=== PATIENT | female | born 1940 ===

== ENCOUNTER 2017-11-11 11:44 | Inpatient (IN) ==
[2017-11-11] MEDS: *HR* Morphine 2 MG/ML SYRINGE IVP PRN ×3 (12:44→21:14)
[2017-11-11] MEDS ORDERED: Naloxone 0.4 MG/ML INJ IVP PRN (12:51)
--- NOTE | 2017-11-11 13:05 | Internal Med History&Physical ---
Date of Encounter: 11/12/17 Time of Encounter: 13:03 Assessment and Plan (1) Hip fracture, left Current visit: Yes Status: Acute 77/female Has multiple comorbid conditions. Admitted with left hip fracture. Orthopedics on the board. Plan: Admit as inpatient. Nothing by mouth. Orthopedics consult. Pain control: Intravenous morphine 2 mg every 4 hours/when necessary. We will get more information regarding her home medication and then we will resume home medication accordingly. Patient's family at bedside. I have explained the above plan the patient's son who was in the room. Family verbalize understanding. Qualifiers: Encounter type: initial encounter Fracture type: closed Qualified Code(s) : S72.002A - Fracture of unspecified part of neck of left femur, initial encounter for closed fracture (2) Hypertension Current visit: Yes Status: Chronic We will resume home medication. Qualifiers: Hypertension type: essential hypertension Qualified Code(s): I10 - Essential (primary) hypertension (3) COPD (chronic obstructive pulmonary disease) Current visit: Yes Status: Chronic We will resume home medication Qualifiers: COPD type: unspecified COPD Qualified Code(s): J44.9 - Chronic obstructive pulmonary disease, unspecified (4) DVT prophylaxis Current visit: Yes Status: Acute Heparin Medical decision making: This patient has a moderate to severe risk of worsening in spite of being on appropriate medication to the underlying complex medical condition. Internal Medicine - H&P: HPI Chief complaint: hip pain Admitted From: Hospital to Hospital Transfer Plans for Post Hospital Care: Transfer Alf Facility History of present illness: 77/female Brief past medical history: COPD/hypertension/GERD/history of colon cancer and status post colectomy. History of present medical illness:Ms. MCDONALD is a 77 year old female who had a multiple medical comorbid conditions. Patient had a fall yesterday at home. Patient was transferred to [facility] for further evaluation. Noted that the CT scan of the hip was done at the [facility]. CT scan of the head was suggestive of a left femur fracture. Patient denies any short of breath, chest pain, nausea, vomiting, abdominal pain, dizziness or diarrhea. Reason for transfer: Patient was transferred to this hospital as [facility] does not have orthopedic coverage as of yesterday. Family history: Noncontributory Past Med Surg Social Fam HX - Past Medical History Medical history: arthritis, cancer, COPD, GERD Psychiatric history: no psych history - Past Surgical History Surgical History: colectomy - Social History Smoking Status: Former smoker Smokeless Tobacco Status: No Alcohol use: none Drug use: none Internal Medicine - H&P: Meds Acetaminophen [Tylenol] 650 mg PO DAILY@209911/11/17 [History] Albuterol Sulfate [Ventolin Hfa] 18 gm IH Q4H PRN 11/11/17 [History] Cholecalciferol (Vitamin D3) [Vitamin D] 1,000 unit PO DAILY 11/11/17 [History] DiphenhydraMINE [Benadryl] 25 mg PO DAILY@2099 PRN 11/11/17 [History] Gabapentin [Gralise] 300 mg PO DAILY@209911/11/17 [History] Levofloxacin [Levaquin] 500 mg PO DAILY 11/11/17 [History] Lisinopril-HCTZ 10-12.5 [Prinzide 10-12.5] 1 each PO DAILY 11/11/17 [History] Ranitidine HCl [Zantac] 150 mg PO BID 11/11/17 [History] Ropinirole HCl [Requip] 0.5 mg PO DAILY@209911/11/17 [History] Temazepam [Restoril] 15 mg PO HS PRN 11/11/17 [History] predniSONE [PredniSONE] 20 mg PO DAILY 11/11/17 [History] 3 Allergy/AdvReac Type Severity Reaction Status Date / Time Penicillins [PCN] Allergy Anaphylaxis Verified 11/11/17 12:04 shellfish derived Allergy Anaphylaxis Verified 11/11/17 12:04 All Systems PM: A 10-system review of systems was performed and is negative for pertinent findings except as documented above in the HPI. - Constitutional Constitutional: no chills, no fever(s), no night sweats Additional comments: Patient has a persistent left hip pain. - EENT Eyes: no change in vision, no discharge, no pain, no photophobia Ears: no ear discharge, no ear pain, no tinnitus Nose, mouth and throat: no dysphagia, no nasal discharge, no neck pain, no sore throat - Cardiovascular Cardiovascular ROS IM: no chest pain, no diaphoresis, no dyspnea, no lightheadedness, no palpitations, no syncope - Respiratory Respiratory: no cough, no dyspnea, no wheezing, no excessive phlegm production - Gastrointestinal Gastrointestinal: no abdominal pain, no diarrhea, no hematemesis, no hematochezia, no melena, no nausea, no vomiting - Genitourinary Genitourinary: no change in urinary stream, no dysuria, no flank pain, no hematuria - Musculoskeletal Musculoskeletal ROS IM: no numbness, no tingling - Integumentary Integumentary IM: no rash, no unusual bruising - Neurological Neurological ROS: no confusion, no convulsions, no focal weakness, no numbness, no tingling, no tremor(s) - Hematologic/Lymphatic Hematologic/Lymphatic: no easy bruising - Head Head exam: Present: atraumatic, normocephalic Additional comments: Left hip pain. - Eye Eye exam: Present: PERRL, conjuntiva pink, sclera anicteric Pupils: Present: PERRL - Neck Neck exam general surgery: Present: supple, trachea midline. Absent: lymphadenopathy - Respiratory Respiratory exam: Present: CTAB. Absent: accessory muscle use, rales, rhonchi, wheezes - Cardiovascular Cardiovascular exam: Present: RRR, +S1, +S2. Absent: diastolic murmur, gallop, rubs, systolic murmur - GI/Abdominal GI/Abdominal exam: Present: normal bowel sounds, soft, no peritoneal signs. Absent: distended, tenderness - Extremities Exam Extremities exam: Present: warm, radial pulses palpable and symmetrical. Absent : calf tenderness, cyanotic, pedal edema - Neurological Exam Neurological exam: Present: CN II-XII intact, oriented X3, no focal deficits. Absent: pronater drift, facial droop, speech deficit - Skin Skin exam: Present: dry, intact Internal Med - H&P Results - Labs CBC & Chem 7: 11/12/17 11:22 11/12/17 01:07
[2017-11-11 13:47] LABS: Basophils % 0.4 %; Eosinophils # 0.1 K/mcL (0.0-0.6); Eosinophils % 1.2 %; Hematocrit 32.8 % (35.3-44.9); Hemoglobin 10.5 g/dL (11.5-15.4); Immature Granulocytes % 0.5 % (0-4); Lymphocytes # 1.8 K/mcL (0.6-4.6); Mean Corpuscular Hemoglobin 29.3 pg (28.0-33.3); Mean Corpuscular Volume 91.6 fL (83.0-100.0); Mean Platelet Volume 9.2 fL (9.4-12.4); Monocytes # 0.7 K/mcL (0.0-1.3); Monocytes % 8.6 %; Neutrophils # 5.6 K/mcL (1.6-8.9); Platelet Count 228 K/mcL (140-400); Red Blood Count 3.58 M/mcL (3.82-4.97); Red Cell Distribution Width 14.1 % (11.5-14.5); Segmented Neutrophils % 67.3 %
[2017-11-11 14:02] LABS: Alanine Aminotransferase 9 Units/L (7-52); Albumin 3.3 g/dL (3.5-5.7); Albumin/Globulin Ratio 1.5 (1.1-2.2); Alkaline Phosphatase 40 Units/L (34-104); Aspartate Amino Transferase 10 Units/L (13-39); BUN/Creatinine Ratio 20 (6-26); Bilirubin,Total 0.7 mg/dL (0.3-1.0); Blood Urea Nitrogen 15 mg/dL (8-23); Calcium 8.9 mg/dL (8.6-10.3); Carbon Dioxide 28 mEq/L (23-29); Chloride 105 mEq/L (98-107); Globulin 2.2 g/dL (2.4-3.5); Glucose 94 mg/dL (70-105); Osmolality,Calculated 287 (280-300); Potassium 3.5 mEq/L (3.5-5.1); Sodium 138 mEq/L (136-145); Total Protein 5.5 g/dL (6.4-8.9); eGFR For African Americans > 60 (> 60); eGFR For Non-African Americans > 60 (> 60)
--- NOTE | 2017-11-11 15:46 | Orthopedic Consult Note ---
Date of Encounter: 11/11/17 Time of Encounter: 15:44 Assessment and Plan (1) Hip fracture, left Current Visit: Yes Status: Acute Nondisplaced reverse obliquity intertrochanteric fracture Plan: Patient was scheduled for surgery tomorrow morning for a left hip intramedullary nailing. The risks, benefits and alternatives discussed patient and family. Informed consent was obtained. Qualifiers: Encounter type: initial encounter Fracture type: closed Qualified Code(s) : S72.002A - Fracture of unspecified part of neck of left femur, initial encounter for closed fracture History of Present Illness Chief complaint: Left hip pain HPI: Ms. MCDONALD is a 77 year old female who lives at home and is a minimal ambulator with a walker. The patient home yesterday when she was pivoting, lost her balance and fell onto her left side. Patient denies loss of consciousness. No dizziness prior to fall. She reports no chest pain or shortness of breath. Patient was taken by [facility] where she was evaluated and a CT scan showed a nondisplaced reverse obliquity intertrochanteric left hip fracture. The patient was transferred here today for surgical management. Past Med Surg Social Fam HX - Past Medical History Medical history: arthritis, cancer, COPD, GERD Psychiatric history: no psych history - Past Surgical History Surgical History: colectomy - Social History Smoking Status: Former smoker Smokeless Tobacco Status: No Alcohol use: none Drug use: none Medications and Allergies Acetaminophen [Tylenol] 650 mg PO DAILY@209911/11/17 [History] Albuterol Sulfate [Ventolin Hfa] 18 gm IH Q4H PRN 11/11/17 [History] Cholecalciferol (Vitamin D3) [Vitamin D] 1,000 unit PO DAILY 11/11/17 [History] DiphenhydraMINE [Benadryl] 25 mg PO DAILY@2100 PRN 11/11/17 [History] Gabapentin [Gralise] 300 mg PO DAILY@209911/11/17 [History] Levofloxacin [Levaquin] 500 mg PO DAILY 11/11/17 [History] Lisinopril-HCTZ 10-12.5 [Prinzide 10-12.5] 1 each PO DAILY 11/11/17 [History] Ranitidine HCl [Zantac] 150 mg PO BID 11/11/17 [History] Ropinirole HCl [Requip] 0.5 mg PO DAILY@2100 11/11/17 [History] Temazepam [Restoril] 15 mg PO HS PRN 11/11/17 [History] predniSONE [PredniSONE] 20 mg PO DAILY 11/11/17 [History] 3 Allergy/AdvReac Type Severity Reaction Status Date / Time Penicillins [PCN] Allergy Anaphylaxis Verified 11/11/17 12:04 shellfish derived Allergy Anaphylaxis Verified 11/11/17 12:04 All Systems Reviewed: A 10-system review of systems was performed and is negative for pertinent findings except as documented above in the HPI. - Musculoskeletal Musculoskeletal: abnormal gait Physical Exam - Constitutional Vitals: Temp Pulse Resp BP Pulse Ox 98.0 F 79 16 107/68 96 11/11/17 13:14 11/11/17 13:14 11/11/17 13:14 11/11/17 13:14 11/11/17 13:14 General appearance IM: A&O X 3, pleasant, answers questions appropriately Exam: Head normocephalic and atraumatic Neck supple and nontender Right upper extremity: No tenderness along bones or joints, no bruising, moving well Left upper extremity: Soft tissues tenderness at the upper arm diffusely, no bony instability, joints move well and no tenderness at elbow, forearm, wrist, and hand, moving joints well Pelvis stable Right extremity no tenderness, moves knee and ankle well no tenderness along bones Left lower extremity: Patient has no groin tenderness but she is tender over the greater trochanter region, painful motion of hip, able to move the digit. Hip but no knee tenderness no tenderness to shaft femur. Moves ankle well with no pain no tenderness in ankle or foot or leg. Dorsalis pedis pulse 2+. Sensation grossly intact. Compartments soft and nontender. Results - Labs Result Diagrams: 11/11/17 13:31 11/11/17 13:31 Labs: Abnormal lab results RBC 3.58 M/mcL (3.82-4.97) L 11/11/17 13:31 Hgb 10.5 g/dL (11.5-15.4) L 11/11/17 13:31 Hct 32.8 % (35.3-44.9) L 11/11/17 13:31 MPV 9.2 fL (9.4-12.4) L 11/11/17 13:31 AST 10 Units/L (13-39) L 11/11/17 13:31 Serum Total Protein 5.5 g/dL (6.4-8.9) L 11/11/17 13:31 Albumin 3.3 g/dL (3.5-5.7) L 11/11/17 13:31 Globulin 2.2 g/dL (2.4-3.5) L 11/11/17 13:31 H & H 11/11/17 Range/Units 13:31 Hgb 10.5 L (11.5-15.4) g/dL Hct 32.8 L (35.3-44.9) % All other labs normal. - Diagnostic results Hip CT: image reviewed (Left hip reverse obliquity nondisplaced intertrochanteric fracture)
[2017-11-12 01:25] LABS: Basophils # 0.1 K/mcL (0.0-0.2); Basophils % 0.6 %; Eosinophils # 0.3 K/mcL (0.0-0.6); Eosinophils % 2.6 %; Hematocrit 33.5 % (35.3-44.9); Hemoglobin 10.6 g/dL (11.5-15.4); Immature Granulocytes % 0.5 % (0-4); Mean Corpuscular HGB Conc 31.6 g/dL (31.6-35.5); Mean Corpuscular Volume 91.8 fL (83.0-100.0); Mean Platelet Volume 9.3 fL (9.4-12.4); Monocytes # 0.7 K/mcL (0.0-1.3); Monocytes % 7.4 %; Neutrophils # 6.5 K/mcL (1.6-8.9); Platelet Count 229 K/mcL (140-400); Red Blood Count 3.65 M/mcL (3.82-4.97); Segmented Neutrophils % 67.9 %
[2017-11-12 01:32] LABS: INR 1.1; Prothrombin Time 11.9 Seconds (9.4-12.1)
[2017-11-12 01:35] LABS: Activated Partial Thrombo Time 28.5 Seconds (26.0-36.0)
[2017-11-12 01:47] LABS: Alanine Aminotransferase 10 Units/L (7-52); Albumin 3.4 g/dL (3.5-5.7); Albumin/Globulin Ratio 1.5 (1.1-2.2); Alkaline Phosphatase 47 Units/L (34-104); Aspartate Amino Transferase 11 Units/L (13-39); BUN/Creatinine Ratio 22 (6-26); Bilirubin,Total 0.9 mg/dL (0.3-1.0); Blood Urea Nitrogen 17 mg/dL (8-23); Carbon Dioxide 25 mEq/L (23-29); Chloride 104 mEq/L (98-107); Chol/HDL Ratio 4.6 (0-4.9); Cholesterol 236 mg/dL (< 200); Globulin 2.3 g/dL (2.4-3.5); Glucose 99 mg/dL (70-105); HDL Cholesterol 51 mg/dL (40-59); LDL Cholesterol,Calculated 148 mg/dL (0-99); Magnesium 1.9 mg/dL (1.6-2.6); Osmolality,Calculated 288 (280-300); Phosphorous 2.2 mg/dL (2.7-4.5); Potassium 3.8 mEq/L (3.5-5.1); Sodium 138 mEq/L (136-145); Total Protein 5.7 g/dL (6.4-8.9); Triglycerides 184 mg/dL (< 150); eGFR For African Americans > 60 (> 60); eGFR For Non-African Americans > 60 (> 60)
[2017-11-12] MEDS: *HR* Morphine 2 MG/ML SYRINGE IVP PRN (03:36)
[2017-11-12] MEDS ORDERED: Acetaminophen IV 1,000 MG/100 ML INFUS..BTL IVPB ONE ×2 (07:31→20:30)
[2017-11-12] MEDS ORDERED: Famotidine 20 MG/2 ML VIAL IVP ONE (07:31)
[2017-11-12] MEDS ORDERED: Albuterol 2.5 MG/3 ML NEBULIZER IH ONE (07:32)
[2017-11-12] MEDS ORDERED: Albuterol 2.5 MG/3 ML NEBULIZER ONE (07:33)
--- NOTE | 2017-11-12 07:37 | Anesthesia Evaluation PreOp ---
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 Other Medical History: Denies Any Significant HX Anesthesia History: No Prior Anesthetic Complications : No Alcohol Use: none Drug use: none Medications and Allergies Acetaminophen [Tylenol] 650 mg PO DAILY@209911/11/17 [History] Albuterol Sulfate [Ventolin Hfa] 18 gm IH Q4H PRN 11/11/17 [History] Cholecalciferol (Vitamin D3) [Vitamin D] 1,000 unit PO DAILY 11/11/17 [History] DiphenhydraMINE [Benadryl] 25 mg PO DAILY@2099 PRN 11/11/17 [History] Gabapentin [Gralise] 300 mg PO DAILY@209911/11/17 [History] Levofloxacin [Levaquin] 500 mg PO DAILY 11/11/17 [History] Lisinopril-HCTZ 10-12.5 [Prinzide 10-12.5] 1 each PO DAILY 11/11/17 [History] Ranitidine HCl [Zantac] 150 mg PO BID 11/11/17 [History] Ropinirole HCl [Requip] 0.5 mg PO DAILY@209911/11/17 [History] Temazepam [Restoril] 15 mg PO HS PRN 11/11/17 [History] predniSONE [PredniSONE] 20 mg PO DAILY 11/11/17 [History] 3 Allergy/AdvReac Type Severity Reaction Status Date / Time Penicillins [PCN] Allergy Anaphylaxis Verified 11/11/17 12:04 shellfish derived Allergy Anaphylaxis Verified 11/11/17 12:04 - Meds/Allergy Pre-op Review Medications Reviewed: Yes Allergies Reviewed: Yes Beta Blockers on Current Med List: No Anesthesia Results - Labs 11/12/17 01:07 11/12/17 01:07 - Imaging EKG: pending Anesthesia Exam O2 Sat Height 1.57 m Weight 62.66 kg Weight 62.596 kg O2 Sat by Pulse Oximetry 97 O2 Sat by Pulse Oximetry 97 O2 Sat by Pulse Oximetry 97 O2 Sat by Pulse Oximetry 97 O2 Sat by Pulse Oximetry 96 Vital Signs Temp Pulse Resp BP Pulse Ox 98.0 F 79 16 107/68 96 11/11/17 13:14 11/11/17 13:14 11/11/17 13:14 11/11/17 13:14 11/11/17 13:14 Height: 5'2 Weight: 138 lbs NPO (# of Hours): MN Pain Scale: 1 - HEENT Pupil (Motor): Pupils equal, EOMI Mallampati: III Teeth: Edentulous Oral Opening: Less than or equal to 3 - 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
[2017-11-12] MEDS ORDERED: Lidocaine -MPF 2% 2 ML VIAL ONE (07:41)
[2017-11-12] MEDS ORDERED: Ondansetron 4 MG/2 ML VIAL ONE (07:41)
[2017-11-12] MEDS ORDERED: *HR* Succinylcholine 200 MG/10 ML VIAL IVP ONE (07:41)
[2017-11-12] MEDS ORDERED: *HR* FentaNYL (PF) 100 MCG/2 ML VIAL ONE ×2 (07:41→08:36)
[2017-11-12] MEDS ORDERED: Lidocaine -MPF 4% 5 ML AMPUL ONE (07:41)
[2017-11-12] MEDS ORDERED: *HR* Propofol 200 MG/20 ML VIAL IVP ONE (07:41)
[2017-11-12] MEDS ORDERED: *HR* Phenylephrine 10 MG/ML VIAL ONE (08:37)
[2017-11-12] MEDS ORDERED: Clindamycin 900 MG/50 ML 900 MG/50 ML IV.SOLN IVPB ONE (08:49)
[2017-11-12] MEDS ORDERED: *HR* Morphine 10 MG/ML VIAL ONE (09:41)
[2017-11-12] MEDS ORDERED: Ringers Solution, Lactated 1,000 ML ONE (10:18)
--- NOTE | 2017-11-12 10:45 | Anesthesia Evaluation Post Op ---
Date of Encounter: 11/12/17 Time of Encounter: 10:45 - Vital Signs Vital Signs: Vital Signs/O2 Sat/Glucose, Most Current Temp Pulse Resp BP Pulse Ox 11/12/17 10:42 98.7 F 94 14 78/42 92 11/12/17 10:32 94 16 77/47 92 11/12/17 10:22 93 14 83/39 96 11/12/17 10:12 99.2 F 93 14 94/52 95 - Lungs Lungs: Clear Ascult./Percussion - Airway Airway: Non-obstructed - Cardiovascular Regular Rate - Mental Status Mental Status: Alert & Oriented, Answers Appropriately - Pain Pain Scale: 1 - Nausea Vomiting Nausea Vomiting: Not Present - Hydration Hydration: NPO - Discharge PostOp Status: Transfer Patient to floor
--- NOTE | 2017-11-12 10:54 | Internal Med Progress Note ---
Date of Encounter: 11/12/17 Time of Encounter: 10:54 - Assessment and plan (1) Hypotension Current Visit: Yes Status: Acute Assessment and plan: Possibly due to anesthesia Cannot rule out hemorrhage Op note states EBL is ~250cc We have given 2L IVF STAT bolus Obtain another IV access TYpe and screen Repeat HB is 9.9 (admitted with 10) GIve 2 units RBCs Hall catheter to monitor I/Os Patient denies hx of cardiac disease MOnitor resp status Transfer out of [facility] to High risk diagnosis with risk of decompensation to shock and need for pressors Qualifiers: Hypotension type: unspecified hypotension type Qualified Code(s): I95.9 - Hypotension, unspecified (2) Hip fracture, left Current Visit: Yes Status: Acute Assessment and plan: s/p fixation Management per surgery Qualifiers: Encounter type: initial encounter Fracture type: closed Qualified Code(s) : S72.002A - Fracture of unspecified part of neck of left femur, initial encounter for closed fracture (3) DVT prophylaxis Current Visit: Yes Status: Acute Assessment and plan: lovenox 30mg q12h, continue same (4) Hypertension Current Visit: Yes Status: Chronic Assessment and plan: Currently hypotensive, hold all meds Qualifiers: Hypertension type: essential hypertension Qualified Code(s): I10 - Essential (primary) hypertension (5) COPD (chronic obstructive pulmonary disease) Current Visit: Yes Status: Chronic Assessment and plan: NO exacerbation at this time Qualifiers: COPD type: unspecified COPD Qualified Code(s): J44.9 - Chronic obstructive pulmonary disease, unspecified (6) Hypoxia Current Visit: Yes Status: Acute Assessment and plan: Acute, post-op Obtain STAT CXR Chest is CTAB at this time, if hypoxia does not improve when patient's hypotension resolved, if CXR is clear, will obtain CTA to r/o PE - Subjective Interval history: 77 F with PMH of HTN, who sustained a Left femoral fracture after a mechanical fall She was seen immediate postop Attention drawn to patient by RN said to have been hypotensive since post op At time of eval, family is at the bedside and state patient usually gets hypotensive when she receives pain meds and or anesthesia The patient is awake, alert, oriented to self, place and person, and situation, she denies any discomfort, no chest pain, no SOB - Constitutional Vitals: Temp Pulse Resp BP Pulse Ox 98.7 F 93 14 69/48 93 11/12/17 10:42 11/12/17 10:50 11/12/17 10:50 11/12/17 10:50 11/12/17 10:50 General appearance: Present: A&O X 3, pleasant, no acute distress - Head Head exam: Present: atraumatic, normocephalic - Eye Eye exam: Present: PERRL, conjuntiva pink, sclera anicteric Pupils: Present: PERRL - Neck Neck exam general surgery: Present: supple, trachea midline. Absent: lymphadenopathy - Respiratory Respiratory exam: Present: CTAB. Absent: accessory muscle use, rales, rhonchi, wheezes - Cardiovascular Cardiovascular exam: Present: RRR, +S1, +S2. Absent: diastolic murmur, gallop, rubs, systolic murmur - GI/Abdominal GI/Abdominal exam: Present: normal bowel sounds, soft, no peritoneal signs. Absent: distended, tenderness - Extremities Exam Extremities exam: Present: warm, radial pulses palpable and symmetrical. Absent : calf tenderness, cyanotic, pedal edema Additional comments: Left extremity with dressings that are clean and dry. NO hematoma collection noted, distal extremity is well perfused - Neurological Exam Neurological exam: Present: alert, CN II-XII intact, oriented X3, no focal deficits. Absent: pronater drift, facial droop, speech deficit - Skin Skin exam: Present: dry, intact Internal Medicine: Result - Labs CBC & Chem 7: 11/12/17 11:22 11/12/17 01:07 Labs: Short CBC 11/11/17 11/12/17 Range/Units 13:31 01:07 WBC 8.4 9.6 (4.3-11.1) K/mcL Hgb 10.5 L 10.6 L (11.5-15.4) g/dL Hct 32.8 L 33.5 L (35.3-44.9) % Plt Count 228 229 (140-400) K/mcL Neutrophils # 5.6 6.5 (1.6-8.9) K/mcL BMP 11/11/17 11/12/17 13:31 01:07 Sodium 138 138 Potassium 3.5 3.8 Chloride 105 104 Carbon Dioxide 28 25 BUN 15 17 Creatinine 0.75 0.77 Glucose 94 99 Calcium 8.9 9.0 Cardiac Enzymes 11/11/17 11/11/17 11/12/17 Range/Units 13:31 18:42 01:07 Troponin I < 0.03 < 0.03 < 0.03 (< 0.04) ng/mL Liver Function 11/11/17 11/12/17 Range/Units 13:31 01:07 Total Bilirubin 0.7 0.9 (0.3-1.0) mg/dL AST 10 L 11 L (13-39) Units/L ALT 9 10 (7-52) Units/L Alkaline Phosphatase 40 47 (34-104) Units/L Albumin 3.3 L 3.4 L (3.5-5.7) g/dL - ABG Interpretation ABG results: PT/INR, D-dimer PT 11.9 Seconds (9.4-12.1) 11/12/17 01:07 - Impressions Impressions Hip X-Ray 11/11/17 15:04 IMPRESSION: Stable nondisplaced fracture of the proximal left femur. D/ / Chandler Flowers MD / Chandler Flowers MD Interpreting Provider: Chandler Flowers MD Femur X-Ray 11/11/17 17:02 IMPRESSION: Stable appearance of mildly displaced proximal femur fracture. No additional fractures seen. D/ / Scott Godoy MD / Scott Godoy MD Interpreting Provider: Scott Godoy MD Fluoroscopy 11/12/17 00:00 IMPRESSION: Intraprocedural fluoroscopic spot images as above. See separate procedure report for more information. D/ / Eric Cochran MD / Eric Cochran MD Interpreting Provider: Eric Cochran MD Hip X-Ray 11/12/17 00:00
[2017-11-12] MEDS ORDERED: 0.9 % Sodium Chloride 1,000 ML IVC SCH (11:00)
--- NOTE | 2017-11-12 11:18 | Operative Note ---
Date of procedure: 11/12/17 Pre-op diagnosis: Left hip reversed obliquity intertrochanteric fracture Post-op diagnosis: same Procedure: Left hip intramedullary nailing Implants: Analia gamma plus long nail Anesthesia: OTTONIEL Surgeon: Hakan Mcduffie Was there an grants assistant present: No Estimated blood loss (cc): 150 Specimen: 0 Condition: stable Disposition: PACU Procedure in Detail: The patient received IV antibiotics in the holding area. She was brought to the operating room, sign in was performed. The patient underwent general anesthesia on the hospital bed. She was then transferred to the fracture table in supine position. The patient was positioned with the support groin post, the affected left lower extremity in the traction grace and the contralateral lower extremity in a well-padded limb grace with a hip flexed and abducted out of the way. Fluoroscopy was then brought in, the fractures visualized, and the fracture reduced. It was seen that this was actually a subtrochanteric fracture. A long nail will be used. We checked on AP and true lateral view of the hip. The greater trochanter was grossly displaced, but appeared to be reducible with direct pressure over the lateral side. Once satisfactory the left hip, from the pelvis down to the knee, was prepped and draped in usual sterile fashion. A timeout was performed. The level of the greater trochanter was palpated, a 4-5 cm oblique incision was made just proximally, , followed by Bovie dissection. The hip abductor was sharply split in line with its fibers with a curved Villeda scissors. The tip of the greater trochanter was palpable. A curved awl was then positioned on the tip. Its position was checked on fluoroscopy, slightly advanced, and we checked the lateral view. Once appropriately positioned, the aggressive awl was then used to open the proximal femur down to level of the lesser trochanter. A guidewire was inserted down the awl, across the fracture site, and driven down to the distal femur. Then measured the length of the guidewire. A 320 mm long nail was chosen I started reaming with a 9 mm reamer and stopped at total 12.5 mm with good chatter. The proximal femur was reamed to 15 mm. A 320 mm long gamma nail with 125 degree neck angle, 11 mm diameter, was assembled, and appropriately inserted into the proximal femur. The appropriate level was checked under fluoroscopy. The trochars were placed in the jig at 125 degree neck angle was then positioned against the skin, and the radiolucent guide was used to assist in positioning. Once satisfactory a 2.5 cm incision was made, the fascia was bluntly split along with the muscle fibers of the vastus lateralis. The triple trocar was advanced up against the lateral cortex. The guidepin was then driven up into the femoral head, checking AP and lateral views. A 95 mm length lag screw was chosen. Overdrilled the guidewire, and the lag screw was inserted over the guidewire. Once close to the edge of the femoral head, the T- handled was held parallel to the nail. The setscrew was then fully tightened, locking the lag screw in static position. The distal targeting was attached to the jig. Fluoroscopy was appropriately set up and the targeting was adjusted. The triple trochars for the distal static locking screw were placed in the jig, a 1.5 cm longitudinal incision was made. The trochars were advanced to the cortex, and drilled across. The depth was measured and a 40 mm by 5 mm bicortical screw was placed. All trochars and jig were removed. Final fluoroscopy shots were taken and saved showing good AP and lateral views of the hip and also distally at the tip of the nail. We obtained a good true lateral of the knee making sure the distal nail was not touching the anterior cortex, in the metaphyseal region. The wounds were irrigated with normal saline. Fascia over the abductors was closed with 1 Vicryl [id number] stitches, including the deep subcutaneous fat layer. Subcutaneous tissues were closed with 2-0 Vicryl, and the skin incisions were closed with Zipline system. Sterile dressings were applied. The patient was transferred to hospital bed where she was extubated and taken to recovery room in stable condition.
[2017-11-12] MEDS ORDERED: Naloxone 0.4 MG/ML INJ IVP PRN (11:24)
[2017-11-12] MEDS ORDERED: Sennosides 8.6 MG TABLET PO PRN (11:24)
[2017-11-12] MEDS ORDERED: *HR* Morphine 2 MG/ML SYRINGE IVP PRN (11:24)
[2017-11-12] MEDS ORDERED: *HR* OxyCODONE Immed Rel 5 MG TABLET PO PRN (11:24)
[2017-11-12] MEDS ORDERED: *HR* HYDROcodone/Acet 5/325 mg TABLET PO PRN (11:24)
[2017-11-12] MEDS ORDERED: Temazepam 15 MG CAPSULE PO PRN (11:24)
[2017-11-12] MEDS ORDERED: D5% in 0.45% NACL 1,000 ML IVC SCH (11:24)
[2017-11-12 11:34] LABS: Basophils # 0.1 K/mcL (0.0-0.2); Basophils % 0.6 %; Eosinophils # 0.2 K/mcL (0.0-0.6); Eosinophils % 1.6 %; Hematocrit 32.1 % (35.3-44.9); Hemoglobin 9.9 g/dL (11.5-15.4); Immature Granulocytes % 0.6 % (0-4); Lymphocytes # 2.2 K/mcL (0.6-4.6); Lymphocytes % 20.4 %; Mean Corpuscular HGB Conc 30.8 g/dL (31.6-35.5); Mean Corpuscular Hemoglobin 29.1 pg (28.0-33.3); Mean Corpuscular Volume 94.4 fL (83.0-100.0); Mean Platelet Volume 9.5 fL (9.4-12.4); Monocytes # 0.9 K/mcL (0.0-1.3); Monocytes % 7.9 %; Neutrophils # 7.5 K/mcL (1.6-8.9); Platelet Count 219 K/mcL (140-400); Red Cell Distribution Width 13.8 % (11.5-14.5); Segmented Neutrophils % 68.9 %
[2017-11-12] MEDS: Ringers Solution, Lactated 1,000 ML IVC SCH ×2 (14:19→23:16)
[2017-11-12] MEDS ORDERED: 0.9 % Sodium Chloride 250 ML ONE (14:49)
[2017-11-12] MEDS: Famotidine 20 MG TABLET PO SCH ×2 (17:16→20:20)
[2017-11-12] MEDS: predniSONE 20 MG TABLET PO SCH (17:16)
[2017-11-12] MEDS: *HR* Enoxaparin 30 MG/0.3 ML SYRINGE SQ SCH (17:21)
[2017-11-12] MEDS: Clindamycin 900 MG/50 ML 900 MG/50 ML IV.SOLN IVPB SCH ×2 (17:21→23:18)
[2017-11-12] MEDS ORDERED: rOPINIRole 0.25 MG TABLET PO SCH (21:00)
[2017-11-12 23:12] LABS: Basophils # 0.1 K/mcL (0.0-0.2); Basophils % 0.5 %; Eosinophils # 0.2 K/mcL (0.0-0.6); Eosinophils % 2.1 %; Hematocrit 35.4 % (35.3-44.9); Hemoglobin 11.6 g/dL (11.5-15.4); Immature Granulocytes % 0.5 % (0-4); Lymphocytes # 1.3 K/mcL (0.6-4.6); Mean Corpuscular HGB Conc 32.8 g/dL (31.6-35.5); Mean Corpuscular Hemoglobin 29.4 pg (28.0-33.3); Mean Corpuscular Volume 89.8 fL (83.0-100.0); Mean Platelet Volume 9.8 fL (9.4-12.4); Monocytes # 0.9 K/mcL (0.0-1.3); Monocytes % 8.6 %; Neutrophils # 7.6 K/mcL (1.6-8.9); Platelet Count 171 K/mcL (140-400); Red Blood Count 3.94 M/mcL (3.82-4.97); Red Cell Distribution Width 14.1 % (11.5-14.5); Segmented Neutrophils % 75.3 %
[2017-11-13] MEDS: Acetaminophen 325 MG TABLET PO PRN ×2 (00:08→08:59)
[2017-11-13] MEDS ORDERED: 0.9 % Sodium Chloride 1,000 ML IVC ONE ×2 (01:28→12:17)
[2017-11-13] MEDS ORDERED: 0.9 % Sodium Chloride 1,000 ML ONE (01:29)
[2017-11-13] MEDS ORDERED: 0.9 % Sodium Chloride 1,000 ML IVC SCH (02:30)
[2017-11-13] MEDS: Ondansetron 4 MG/2 ML VIAL IVP PRN ×2 (03:04→14:07)
[2017-11-13] MEDS ORDERED: *HR* HYDROmorphone (PF) 1 MG/ML SYRINGE IVP ONE (04:09)
[2017-11-13] MEDS ORDERED: *HR* Promethazine 25 MG/ML VIAL IM PRN (04:09)
[2017-11-13] MEDS ORDERED: *HR* Promethazine 25 MG/ML VIAL IV PRN ×2 (04:30→16:30)
[2017-11-13 04:44] LABS: Hematocrit 34.6 % (35.3-44.9); Hemoglobin 11.1 g/dL (11.5-15.4); Mean Corpuscular HGB Conc 32.1 g/dL (31.6-35.5); Mean Corpuscular Volume 90.3 fL (83.0-100.0); Mean Platelet Volume 10.2 fL (9.4-12.4); Platelet Count 161 K/mcL (140-400); Red Blood Count 3.83 M/mcL (3.82-4.97); Segmented Neutrophils % 69.9 %
[2017-11-13 04:45] LABS: Basophils # 0.1 K/mcL (0.0-0.2); Basophils % 0.6 %; Eosinophils # 0.2 K/mcL (0.0-0.6); Eosinophils % 2.6 %; Immature Granulocytes % 0.7 % (0-4); Lymphocytes # 1.5 K/mcL (0.6-4.6); Lymphocytes % 17.7 %; Monocytes # 0.7 K/mcL (0.0-1.3); Monocytes % 8.5 %; Neutrophils # 6.1 K/mcL (1.6-8.9); Nucleated Red Blood Cells 0.2 /100 WBC (0)
[2017-11-13 05:02] LABS: BUN/Creatinine Ratio 22 (6-26); Blood Urea Nitrogen 17 mg/dL (8-23); Calcium 7.9 mg/dL (8.6-10.3); Carbon Dioxide 23 mEq/L (23-29); Chloride 104 mEq/L (98-107); Glucose 139 mg/dL (70-105); Osmolality,Calculated 286 (280-300); Potassium 3.9 mEq/L (3.5-5.1); Sodium 136 mEq/L (136-145); eGFR For African Americans > 60 (> 60); eGFR For Non-African Americans > 60 (> 60)
[2017-11-13] MEDS: *HR* Enoxaparin 30 MG/0.3 ML SYRINGE SQ SCH (05:27)
[2017-11-13] MEDS: Famotidine 20 MG TABLET PO SCH ×2 (08:59→20:00)
[2017-11-13] MEDS: predniSONE 20 MG TABLET PO SCH (08:59)
--- NOTE | 2017-11-13 10:06 | Internal Med Progress Note ---
<Oriana Renae - Last Filed: 11/13/17 16:29> Date of Encounter: 11/13/17 Time of Encounter: 10:04 - Assessment and plan (1) Acute pulmonary embolism Current Visit: Yes Status: Acute Assessment and plan: CTA 11/13/2017 showed acute bilateral pulmonary emboli in the segmental pulmonary arteries with evidence of at least mild right heart strain. Patient transferred to the ICU into the care of the critical care team therapeutic IV lovenox started STAT echo, troponin, BNP ordered Qualifiers: Qualified Code(s): I26.99 - Other pulmonary embolism without acute cor pulmonale (2) Hip fracture, left Current Visit: Yes Status: Acute Assessment and plan: s/p fixation Management per surgery Qualifiers: Encounter type: initial encounter Fracture type: closed Qualified Code(s) : S72.002A - Fracture of unspecified part of neck of left femur, initial encounter for closed fracture (3) Hypotension Current Visit: Yes Status: Acute Assessment and plan: Most likely due to PE found on CTA 11/13/2017 Hgb 11.1 2 units RBCs given typed and screened Hall catheter to monitor I/Os Qualifiers: Hypotension type: unspecified hypotension type Qualified Code(s): I95.9 - Hypotension, unspecified (4) Hypoxia Current Visit: Yes Status: Acute Assessment and plan: Acute, post-op STAT CXR showed nonspecific opacity in lateral lower left chest which could be consolidation or scar or docal nodule 96% saturation on 4L (5) COPD (chronic obstructive pulmonary disease) Current Visit: Yes Status: Chronic Assessment and plan: NO exacerbation at this time. continue albuerol Qualifiers: COPD type: unspecified COPD Qualified Code(s): J44.9 - Chronic obstructive pulmonary disease, unspecified (6) Hypertension Current Visit: Yes Status: Chronic Assessment and plan: Currently hypotensive, hold all meds Qualifiers: Hypertension type: essential hypertension Qualified Code(s): I10 - Essential (primary) hypertension (7) DVT prophylaxis Current Visit: Yes Status: Acute Assessment and plan: on lovenox for PE - Subjective Interval history: She has no complaints at this time. She reports her hip is chlorine cell tender. Denied shortness of breathe and chest pain, fever, chills. - Constitutional Vitals: Temp Pulse Resp BP Pulse Ox 97.7 F 90 18 96/55 95 11/13/17 08:10 11/13/17 08:10 11/13/17 08:10 11/13/17 08:10 11/13/17 08:10 General appearance: Present: A&O X 3, pleasant, no acute distress - Head Head exam: Present: atraumatic, normocephalic - Eye Eye exam: Absent: scleral icterus - Respiratory Respiratory exam: Present: CTAB. Absent: rales, rhonchi, wheezes - Cardiovascular Cardiovascular exam: Present: RRR - GI/Abdominal GI/Abdominal exam: Present: hypoactive bowel sounds, soft. Absent: guarding, tenderness - Extremities Exam Extremities exam: Absent: calf tenderness - Expanded Lower Extremities Exam Hip exam: Present: tenderness - Neurological Exam Neurological exam: Present: alert, oriented X3 - Psychiatric Psychiatric exam: Present: normal affect, normal mood - Skin Skin exam: Present: dry, intact Internal Medicine: Result - Labs CBC & Chem 7: 11/13/17 04:23 11/13/17 04:23 Labs: Short CBC 11/12/17 11/12/17 11/13/17 Range/Units 11:22 22:43 04:23 WBC 10.8 10.0 8.7 (4.3-11.1) K/mcL Hgb 9.9 L 11.6 D 11.1 L (11.5-15.4) g/dL Hct 32.1 L 35.4 34.6 L (35.3-44.9) % Plt Count 219 171 161 (140-400) K/mcL Neutrophils # 7.5 7.6 6.1 (1.6-8.9) K/mcL BMP 11/13/17 04:23 Sodium 136 Potassium 3.9 Chloride 104 Carbon Dioxide 23 BUN 17 Creatinine 0.77 Glucose 139 H Calcium 7.9 L - ABG Interpretation ABG results: PT/INR, D-dimer PT 11.9 Seconds (9.4-12.1) 11/12/17 01:07 - Impressions Impressions Fluoroscopy 11/12/17 00:00 IMPRESSION: Intraprocedural fluoroscopic spot images as above. See separate procedure report for more information. D/ / Eric Cochran MD / Eric Cochran MD Interpreting Provider: Eric Cochran MD Hip X-Ray 11/12/17 00:00 IMPRESSION: Intraprocedural fluoroscopic spot images as above. See separate procedure report for more information. D/ / Eric Cochran MD / Eric Cochran MD Interpreting Provider: Eric Cochran MD Chest X-Ray 11/12/17 15:07 IMPRESSION: 1. Nonspecific opacity lateral lower left chest may reflect consolidation, scar or focal nodule. Correlation with contrast-enhanced CT chest should be considered if the patient does not present with typical presentation of community acquired pneumonia. If the patient has typical findings of pneumonia clinically, then follow-up chest radiograph series in 6-8 weeks to ensure clearing will suffice. 2. Emphysema 3. Calcific atherosclerotic disease aorta. D/ / Lonnie Taylor / Lonnie Taylor Interpreting Provider: Lonnie Taylor - VTE Documentation of Mechanical Device: Intermittent pneumatic compression device Consult Discharge Plan - Plan Referrals: Ree Fan MD [Primary Care Provider] - ([facility] no PCP appointment needed) <Oz Xavier T - Last Filed: 11/13/17 16:47> Date of Encounter: 11/13/17 - Assessment and plan (1) Hypotension Current Visit: Yes Status: Acute Qualifiers: Qualified Code(s): I95.9 - Hypotension, unspecified (2) Hip fracture, left Current Visit: Yes Status: Acute Qualifiers: Qualified Code(s): S72.002A - Fracture of unspecified part of neck of left femur, initial encounter for closed fracture (3) DVT prophylaxis Current Visit: Yes Status: Acute (4) Hypertension Current Visit: Yes Status: Chronic Qualifiers: Qualified Code(s): I10 - Essential (primary) hypertension (5) COPD (chronic obstructive pulmonary disease) Current Visit: Yes Status: Chronic Qualifiers: Qualified Code(s): J44.9 - Chronic obstructive pulmonary disease, unspecified (6) Hypoxia Current Visit: Yes Status: Acute - Constitutional Vitals: Temp Pulse Resp BP Pulse Ox 97.5 F L 91 18 91/49 96 11/13/17 11:15 11/13/17 11:15 11/13/17 11:35 11/13/17 11:35 11/13/17 11:35 Internal Medicine: Result - Labs CBC & Chem 7: 11/13/17 04:23 11/13/17 04:23 Labs: Short CBC 11/12/17 11/13/17 Range/Units 22:43 04:23 WBC 10.0 8.7 (4.3-11.1) K/mcL Hgb 11.6 D 11.1 L (11.5-15.4) g/dL Hct 35.4 34.6 L (35.3-44.9) % Plt Count 171 161 (140-400) K/mcL Neutrophils # 7.6 6.1 (1.6-8.9) K/mcL BMP 11/13/17 04:23 Sodium 136 Potassium 3.9 Chloride 104 Carbon Dioxide 23 BUN 17 Creatinine 0.77 Glucose 139 H Calcium 7.9 L Cardiac Enzymes 11/13/17 Range/Units 15:04 Troponin I 0.29 H* (< 0.04) ng/mL - ABG Interpretation ABG results: PT/INR, D-dimer PT 11.9 Seconds (9.4-12.1) 11/12/17 01:07 - Impressions Impressions Chest CTA 11/13/17 12:12 IMPRESSION: 1. Acute bilateral pulmonary emboli in the segmental pulmonary arteries with evidence of at least mild right heart strain. 2. Patchy airspace opacities in the right lower lobe which could be related to infection or developing pulmonary infarct. 3. Coronary atherosclerosis. D/ / 11/13/2017 13:34:22 Scott Godoy MD / [facility] Interpreting Provider: Scott Godoy MD Echocardiogram 11/13/17 14:24 Impressions: LVEF 65%. Mild left ventricular diastolic dysfunction. Mid right ventricle is moderately dilated (basal and longitudinal size measurements are within normal limits) but does not appear akinetic. Overall function appears normal on this study. Mild-moderate tricuspid regurgitation. Mild-moderate pulmonary hypertension. Consider repeat imaging if clinical status changes. Left Ventricular Wall Motion: Rest Echo Findings The apex and apical lateral harris were not visualized. All other wall segments showed normal motion. Findings: Study Quality * Technically challenging - not all windows are well visualized. ECG Findings * Normal sinus rhythm. Left Ventricle * LVEF 65%. * LV wall measurements are not well obtained. * Mild left ventricular diastolic dysfunction. Right Ventricle * RV function is normal (normal TD velocity at the base). Subcostal images poorly visualize the RV. The basal and longitudinal size measurements are within normal limits. The mid section of the RV is moderately dilated - it does not appear akinetic. Left Atrium * Left atrium is not well visualized. Right Atrium * Normal right atrial size. Aortic Valve * No aortic regurgitation. * Aortic valve not well visualized. * No aortic stenosis. Mitral Valve * No mitral regurgitation. * Mitral valve not well visualized. * No mitral stenosis. Tricuspid Valve * Normal tricuspid valve structure. * Mild-moderate tricuspid regurgitation. * Estimated RA pressure is 8 mmHg. * Estimated RVSP is 49 mmHg. * Mild-moderate pulmonary hypertension. Pulmonic Valve * Pulmonic valve is not well visualized. * No pulmonic stenosis. * No pulmonic regurgitation. Pulmonary Artery * Pulmonary artery not well visualized. Aorta * Not well visualized. Pericardium * There is no pericardial effusion present. Interatrial Septum * No evidence of PFO by color Doppler. IVC * The IVC is dilated. * > 50% respiratory change - Attending Attestation See my event note of same day Resident's documentation reflect our plan of care
[2017-11-13] MEDS ORDERED: Levofloxacin 750 MG/150 ML 750 MG/150 ML BAG IVPB SCH (13:00)
--- NOTE | 2017-11-13 13:48 | Electrocardiograph Report ---
[place] [address] Test Date: 2017-11-12 Pat Name: MAURIZIO MCDONALD Department: 114 Room: 2N12 Gender: F Recruiter: DARRELL : 1940 Requested By: Oz Xavier Order Number: [id number] Reading MD: Jaci Whatley Measurements Intervals [place] Rate: 92 P: 70 TX: 155 QRS: -2 QRSD: 81 T: 63 QT: 338 QTc: 387 Interpretive Statements SINUS RHYTHM POSSIBLE RIGHT VENTRICULAR CONDUCTION DELAY Electronically Signed On 11-13-2017 13:47:01 EST by Jaci Whatley
--- NOTE | 2017-11-13 14:03 | Electrocardiograph Report ---
[address] [address] Test Date: 2017-11-12 Pat Name: MAURIZIO MCDONALD Department: 101 Room: 2N12 Gender: F Feeder/Folder: : 1940 Requested By: Oz Xavier Order Number: [id number] Reading MD: Jaci Whatley Measurements Intervals [place] Rate: 101 P: 78 FL: 150 QRS: 18 QRSD: 73 T: 72 QT: 311 QTc: 369 Interpretive Statements SINUS TACHYCARDIA POSSIBLE RIGHT VENTRICULAR CONDUCTION DELAY ABNORMAL RHYTHM ECG Electronically Signed On 11-13-2017 14:02:00 EST by Jaci Whaltey
--- NOTE | 2017-11-13 14:45 | Event Note ---
Date of Encounter: 11/13/17 Time of Encounter: 14:38 Patient seen and evaluated at bedside this morning She was admitted 11/11 for femoral fracture She is POD 1 of nail fixation Immediate post-op 11/12/17, patient developed hypoxia with O2 sats in the 80s, and hypotension with MAP ranging from 50s-60s, systolic blood pressure 80-90. She was resuscitated with IVF , transfused with blood with an assumption of acute blood loss anemia Throughout these processes, patient is alert, awake and oriented, asymptomatic Her Oxygen saturation improved with supplemental O2 However, she continued to have hypotension, after 2 units RBCs, requiring dopamine infusion by night team She was seen at the bedside with her son this morning who stated patient was bedbound for a while after her fracture as transportation couldnt get to her on time. The patient is laying flat in bed in no form of distress, her blood pressure is improving with IVF and dopamine STAT CTA showed bilateral acute segmental PE, with possible R side infarct / pneumonia and mild heart strain We have ordered a STAT ECHO, BNP, troponin, chnaged her lovenox from 30mg BID ( DVT prophylaxis for femoral fracture) to full dose lovenox, as well as consulted critical care for possible TPA and transfer to their service. Dr. Vasquez will be evaluating the patient Family at the bedside updated about new diagnosis Condition is critical Patient is full code Rest of details as detailed in the resident physicians documentation.
--- NOTE | 2017-11-13 16:15 | Pulmonology Consult Note ---
Date of Encounter: 11/13/17 Time of Encounter: 03:00 Assessment and Plan (1) Pulmonary embolism Current Visit: Yes Status: Deleted I was called by the primary team to evaluate this patient because of hypoxia and hypotension. Patient has acute pulmonary embolism which is provoked after she had a fall and fracture subsequently had surgery done for her fracture. Patient has hypotension which could be related to pulmonary embolism and I had long discussion with the son at the bedside was the power of surgical lead regarding thrombolytic and understanding the risks mainly intracranial hemorrhage and also recent surgery we found monitoring patient and transferring care to ICU for close monitoring is acceptable management especially with normal BNP level and troponin. I suspect evidence of right heart strain in the CT chest possibly related to her underlying COPD and will treat With bronchodilators and to keep her oxygen saturation around 92%. Pulmonary infarct could be also a reason for her hypoxia. I have discussed with the pharmacist regarding TPA in case her condition deteriorate and she needs it. I will be careful with IV fluid. Echocardiogram was done and my evaluation there is enlargement of right ventricle, but I am waiting for the official reading from the head waitress regarding right ventricular strain. Patient is on appropriate anticoagulation. I have answered all patient's and her son's questions and patient transferred to ICU. Follow up BNP and troponin is elevated suggesting right ventricular strain, however echocardiogram reviewed and overall right ventricle function is normal according to the head waitress for that reason we will continue monitoring and elevated BNP could be from the fluid resuscitation. We will start to wean off dopamine and hopefully she will tolerate it. Again this was discussed with the family at the bedside. Thank you for the consultation and critical care time 35 minutes. Qualifiers: Pulmonary embolism type: other Chronicity: acute Acute cor pulmonale presence: without acute cor pulmonale Qualified Code(s): I26.99 - Other pulmonary embolism without acute cor pulmonale (2) Hypotension Current Visit: Yes Status: Acute Patient is on low-dose dopamine and we will wean off as tolerated Qualifiers: Hypotension type: unspecified hypotension type Qualified Code(s): I95.9 - Hypotension, unspecified (3) Hypoxia Current Visit: Yes Status: Acute Acute hypoxic respiratory failure. This is multifactorial from her underlying COPD and also most likely pulmonary infarct. This likely pulmonary infarct and less likely pneumonia, however empiric treatment is reasonable. (4) COPD (chronic obstructive pulmonary disease) Current Visit: Yes Status: Chronic Qualifiers: COPD type: unspecified COPD Qualified Code(s): J44.9 - Chronic obstructive pulmonary disease, unspecified (5) Acute pulmonary embolism Current Visit: Yes Status: Acute Patient is on anticoagulation and encouraged incentive spirometry Qualifiers: Qualified Code(s): I26.99 - Other pulmonary embolism without acute cor pulmonale (6) Hip fracture, left Current Visit: Yes Status: Acute Qualifiers: Encounter type: initial encounter Fracture type: closed Qualified Code(s) : S72.002A - Fracture of unspecified part of neck of left femur, initial encounter for closed fracture History of Present Illness Consult date: 11/13/17 Requesting physician: Oz Xavier Reason for consult: pulmonary embolism Chief complaint: Femur fracture left side History of present illness: This is a very pleasant 77-year-old female with known history of COPD and she is not using oxygen at home but inhalers occasionally and she quit smoking about 20 years ago presented to the hospital after she had a fall at home not having any syncope or presyncope and CT of the head was done at outside hospital with evidence of left femur fracture. Patient was diagnosed with pulmonary embolism and pulmonary was consulted for an evaluation. She denies any significant shortness of breath and denies any chest pain, but she has generalized pain mainly in the left side where she had surgery done. She denies any dizziness and no significant productive cough or wheezing. She denies fever or chills. Patient had no hemoptysis. Patient recently had surgery and there is no history of intracranial bleeding or any recent spinal surgery. Past Med Surg Social Fam HX - Past Medical History Medical history: arthritis, cancer, COPD, GERD Psychiatric history: no psych history - Past Surgical History Surgical History: colectomy - Social History Smoking Status: Former smoker Smokeless Tobacco Status: No Alcohol use: none Drug use: none Medications and Allergies Acetaminophen [Tylenol] 650 mg PO HS 11/11/17 [History] Albuterol Sulfate [Ventolin Hfa] 2 puff IH Q4H PRN 11/11/17 [History] Cholecalciferol (Vitamin D3) [Vitamin D] 1,000 unit PO DAILY 11/11/17 [History] Lisinopril-HCTZ 10-12.5 [Prinzide 10-12.5] 1 each PO DAILY 11/11/17 [History] Ranitidine HCl [Zantac] 150 mg PO BID 11/11/17 [History] predniSONE [PredniSONE] 20 mg PO DAILY 11/11/17 [History] 3 Allergy/AdvReac Type Severity Reaction Status Date / Time Penicillins [PCN] Allergy Anaphylaxis Verified 11/11/17 12:04 shellfish derived Allergy Anaphylaxis Verified 11/11/17 12:04 All Systems: A 10-system review of systems was performed and is negative for pertinent findings except as documented above in the HPI. Physical Examination Vital Signs: Please refer to the nursing note for the vital signs General appearance: appears uncomfortable (Mainly from the pain) Eyes: nonicteric ENT: oropharynx moist Neck: supple, no lymphadenopathy, no JVD Effort: normal Inspection: kyphosis Auscultation: right: rhonchi, bilateral: diminished breath sounds Percussion: bilateral: not dull Cardiovascular: regular rate and rhythm Gastrointestinal: normoactive bowel sounds, non-distended Extremities: no cyanosis, edema Musculoskeletal: other (Status post surgery of the left femur) normal mental status, non-focal exam mood appropriate Results - Laboratory Findings CBC and BMP: 11/13/17 04:23 11/13/17 04:23 PT/INR, D-dimer PT 11.9 Seconds (9.4-12.1) 11/12/17 01:07 Abnormal lab findings: Abnormal lab results Hgb 11.1 g/dL (11.5-15.4) L 11/13/17 04:23 Hct 34.6 % (35.3-44.9) L 11/13/17 04:23 Nucleated RBCs/100 WBC 0.2 /100 WBC (0) H 11/13/17 04:23 Glucose 139 mg/dL (70-105) H 11/13/17 04:23 POC Glucose 104 (58-89) H 11/12/17 11:44 Calcium 7.9 mg/dL (8.6-10.3) L 11/13/17 04:23 Phosphorus 2.2 mg/dL (2.7-4.5) L 11/12/17 01:07 AST 11 Units/L (13-39) L 11/12/17 01:07 Troponin I 0.29 ng/mL (< 0.04) H* 11/13/17 15:04 B-Natriuretic Peptide 490 pg/mL (Less than 100) H 11/13/17 15:04 Serum Total Protein 5.7 g/dL (6.4-8.9) L 11/12/17 01:07 Albumin 3.4 g/dL (3.5-5.7) L 11/12/17 01:07 Globulin 2.3 g/dL (2.4-3.5) L 11/12/17 01:07 Triglycerides 184 mg/dL (< 150) H 11/12/17 01:07 Cholesterol 236 mg/dL (< 200) H 11/12/17 01:07 LDL Cholesterol, Calc 148 mg/dL (0-99) H 11/12/17 01:07 VLDL Cholesterol, Calc 37 mg/dL (< 31) H 11/12/17 01:07 - Diagnostic Findings CT scan - chest: report reviewed, image reviewed - Clinical Findings Intake & Output: Intake & Output 11/13/17 11/13/17 11/13/17 07:59 15:59 23:59 Intake Total 1346 / 1346 1999 Output Total 50 / 50 Balance 1296 / 1296 1999 Weight 68.7 kg Consult Discharge Plan - Plan Referrals: Ree Fan MD [Primary Care Provider] - (patient is going to [facility] no PCP appointment needed)
--- NOTE | 2017-11-13 16:24 | Orthopedics Progress Note ---
Date of Encounter: 11/13/17 Time of Encounter: 16:00 - Assessment and Plan (1) Hip fracture, left Current Visit: Yes Status: Acute POD#1 s/p left hip IM nailing 11/12/17 Dressings c/d/i with no drainage. leave intact unless become >50% saturated continue therapy Toe touch weight bearing ice to left hip as needed Patient being transferred to ICU for bilateral PE. She has has hypotension and hypoxia but otherwise asymptomatic. Hgb 11.1 after 2 units RBC yesterday Will follow up in AB office with Renetta Gibson PA-C at [facility]. Qualifiers: Encounter type: initial encounter Fracture type: closed Qualified Code(s) : S72.002A - Fracture of unspecified part of neck of left femur, initial encounter for closed fracture Subjective Principal diagnosis: POD#1 s/p left hip IM nailing 11/12/17 Interval history: Patient laying in bed currently comfortable, pain in hip tolerable with medication. Denies any numbness or tingling to extremity. Objective Vital signs: Vital Signs Temp Pulse Resp BP Pulse Ox 11/13/17 11:35 18 91/49 96 11/13/17 11:15 97.5 F L 91 18 91/49 96 11/13/17 09:40 103/60 93 11/13/17 08:10 97.7 F 90 18 96/55 95 11/13/17 07:46 97.7 F 90 18 96/55 95 11/13/17 06:00 95 98/62 11/13/17 05:29 97 101/62 11/13/17 05:00 96 93/53 11/13/17 04:30 100 93/56 11/13/17 04:00 101 101/54 11/13/17 03:47 96 85/53 11/13/17 03:46 95 88/50 11/13/17 03:30 110 103/55 11/13/17 03:15 97.9 F 107 20 104/55 90 11/13/17 03:00 104 85/49 11/13/17 02:55 104 93/46 11/13/17 02:50 96 101/58 11/13/17 02:45 92 82/41 11/13/17 02:42 81 84/50 11/13/17 02:36 83 77/53 11/13/17 02:15 67/41 11/13/17 02:00 81 76/50 11/13/17 01:45 83 77/47 11/13/17 01:30 84 74/44 11/13/17 01:26 83 60/42 11/13/17 01:00 82 82/43 11/12/17 23:28 97.8 F 92 18 93/54 96 11/12/17 21:44 99.2 F 11/12/17 21:20 101.1 F H 96 94/58 11/12/17 20:56 101.2 F H 99 20 98/58 93 11/12/17 20:36 98 93 11/12/17 20:02 100.1 F H 98 14 92/61 93 11/12/17 19:06 98 86/54 11/12/17 18:45 99.9 F H 102 19 82/53 93 11/12/17 18:23 100.2 F H 103 18 81/49 11/12/17 18:00 102 81/45 11/12/17 17:45 102 82/45 11/12/17 17:24 98.9 F 102 18 80/52 11/12/17 17:15 100 80/52 95 11/12/17 16:30 95 93/52 Intake and Output 11/13/17 11/13/17 11/13/17 07:59 15:59 23:59 Intake Total 1346 / 1346 1999 Output Total 50 / 50 Balance 1296 / 1296 1999 Intake: IV Fluids 1346 / 1346 1999 0.9 % Sodium Chloride 1,000 ML 1000 / 1000 1999 @ 3750 mls/hr IVC .Q16M ONE Rx# :[id number] Lactated Ringers 1,000 ML @ 125 296 / 296 mls/hr IVC .Q8H POOL Rx#: [id number] Cleocin Premix 900 MG/50 ML 900 50 / 50 mg In 50 ml @ 50 mls/hr IVPB Q8HR POOL Rx#:[id number] Oral 0 / 0 Output: Catheter 50 / 50 Other: Weight 68.7 kg Patient Weight 11/13/17 23:59 Weight 68.7 kg Incision: clean and dry (dressings to left hip c/d/i with no drainage, no tenderness to hip, good dorsiflexion of foot, grossly NV intact) - Labs CBC & BMP: 11/13/17 04:23 11/13/17 04:23 Labs: Abnormal lab results Hgb 11.1 g/dL (11.5-15.4) L 11/13/17 04:23 Hct 34.6 % (35.3-44.9) L 11/13/17 04:23 Nucleated RBCs/100 WBC 0.2 /100 WBC (0) H 11/13/17 04:23 Glucose 139 mg/dL (70-105) H 11/13/17 04:23 POC Glucose 104 (58-89) H 11/12/17 11:44 Calcium 7.9 mg/dL (8.6-10.3) L 11/13/17 04:23 Phosphorus 2.2 mg/dL (2.7-4.5) L 11/12/17 01:07 AST 11 Units/L (13-39) L 11/12/17 01:07 Troponin I 0.29 ng/mL (< 0.04) H* 11/13/17 15:04 B-Natriuretic Peptide 490 pg/mL (Less than 100) H 11/13/17 15:04 Serum Total Protein 5.7 g/dL (6.4-8.9) L 11/12/17 01:07 Albumin 3.4 g/dL (3.5-5.7) L 11/12/17 01:07 Globulin 2.3 g/dL (2.4-3.5) L 11/12/17 01:07 Triglycerides 184 mg/dL (< 150) H 11/12/17 01:07 Cholesterol 236 mg/dL (< 200) H 11/12/17 01:07 LDL Cholesterol, Calc 148 mg/dL (0-99) H 11/12/17 01:07 VLDL Cholesterol, Calc 37 mg/dL (< 31) H 11/12/17 01:07 - VTE Documentation of Mechanical Device: Intermittent pneumatic compression device Consult Discharge Plan - Plan Referrals: Ree Fan MD [Primary Care Provider] - (patient is going to [facility] no PCP appointment needed)
[2017-11-13] MEDS ORDERED: Acetaminophen 325 MG TABLET PO PRN (16:30)
[2017-11-13] MEDS ORDERED: Temazepam 15 MG CAPSULE PO PRN (16:30)
[2017-11-13] MEDS ORDERED: Ondansetron 4 MG/2 ML VIAL IVP PRN (16:30)
[2017-11-13] MEDS ORDERED: *HR* Morphine 2 MG/ML SYRINGE IVP PRN (16:30)
[2017-11-13] MEDS ORDERED: Sennosides 8.6 MG TABLET PO PRN (16:30)
[2017-11-13] MEDS ORDERED: Naloxone 0.4 MG/ML INJ IVP PRN (16:30)
[2017-11-13] MEDS: 0.9 % Sodium Chloride 1,000 ML IVC SCH ×2 (17:11→23:45)
[2017-11-13] MEDS: *HR* Enoxaparin 80 MG/0.8 ML SYRINGE SQ SCH (17:11)
[2017-11-13] MEDS ORDERED: *HR* Enoxaparin 80 MG/0.8 ML SYRINGE SQ SCH (18:00)
[2017-11-13] MEDS: *HR* OxyCODONE Immed Rel 5 MG TABLET PO PRN ×2 (18:29→22:33)
[2017-11-13] MEDS: rOPINIRole 0.25 MG TABLET PO SCH ×2 (20:00→20:06)
[2017-11-13] MEDS: Ipratropium/Albuterol Neb 3 ML IH SCH (23:14)
[2017-11-13] MEDS: Budesonide/Formoterol 160/4.5 MDI IH SCH (23:15)
[2017-11-14] MEDS: Ipratropium/Albuterol Neb 3 ML IH SCH ×4 (04:25→21:30)
[2017-11-14] MEDS: *HR* OxyCODONE Immed Rel 5 MG TABLET PO PRN ×3 (04:39→19:19)
[2017-11-14] MEDS: *HR* Enoxaparin 80 MG/0.8 ML SYRINGE SQ SCH ×2 (05:21→19:06)
[2017-11-14 08:04] LABS: Basophils % 0.1 %; Eosinophils % 0.2 %; Hematocrit 34.8 % (35.3-44.9); Hemoglobin 11.1 g/dL (11.5-15.4); Immature Granulocytes % 0.6 % (0-4); Lymphocytes # 0.7 K/mcL (0.6-4.6); Lymphocytes % 8.4 %; Mean Corpuscular HGB Conc 31.9 g/dL (31.6-35.5); Mean Corpuscular Hemoglobin 29.1 pg (28.0-33.3); Mean Corpuscular Volume 91.3 fL (83.0-100.0); Mean Platelet Volume 10.2 fL (9.4-12.4); Monocytes # 0.8 K/mcL (0.0-1.3); Monocytes % 8.7 %; Neutrophils # 7.1 K/mcL (1.6-8.9); Platelet Count 161 K/mcL (140-400); Red Blood Count 3.81 M/mcL (3.82-4.97); Red Cell Distribution Width 13.9 % (11.5-14.5)
[2017-11-14] MEDS: Famotidine 20 MG TABLET PO SCH ×2 (08:08→19:19)
[2017-11-14] MEDS ORDERED: predniSONE 20 MG TABLET PO SCH (09:00)
[2017-11-14 09:04] LABS: BUN/Creatinine Ratio 17 (6-26); Blood Urea Nitrogen 9 mg/dL (8-23); Carbon Dioxide 23 mEq/L (23-29); Chloride 105 mEq/L (98-107); Glucose 117 mg/dL (70-105); Osmolality,Calculated 288 (280-300); Potassium 3.6 mEq/L (3.5-5.1); Sodium 139 mEq/L (136-145); eGFR For African Americans > 60 (> 60); eGFR For Non-African Americans > 60 (> 60)
--- NOTE | 2017-11-14 09:08 | Pulmonology Progress Note ---
<Freddy Flores - Last Filed: 11/14/17 11:01> Date of Encounter: 11/14/17 Time of Encounter: 08:30 Assessment and Plan (1) Acute pulmonary embolism Current Visit: Yes Status: Acute CTA performed on 11/13/17 demonstrated acute bilateral pulmonary emboli in segmental pulmonary arteries with evidence of at least mild strain. Patient initially had hypoxia and hypotension; last O2 sat was 97 on 3 L of O2. BNP and troponin initially normal; Subsequent troponin was elevated at 0.29; possibly 2/2 R ventricular strain. ECHO was ordered; demonstrated the following: LVEF 65%. -Mild-moderate tricuspid regurgitation. -Mild L ventricular diastolic dysfunction. -Mild-moderate pulmonary hypertension. -Mid R ventricle is moderately dilated (basal and longitudinal size Plan: -Lovenox 70 mg SQ Q12 -Troponin and BNP series have been ordered. -Will likely be transferred to [facility] [place]. Qualifiers: Qualified Code(s): I26.99 - Other pulmonary embolism without acute cor pulmonale (2) Hip fracture, left Current Visit: Yes Status: Acute Patient is status post left hip fracture. Postop day 2 left hip IM nailing 11/12/17. Plan per orthopedics: -Ice to left hip as needed -continue therapy toe touch weightbearing -follow-up in the outpatient setting Qualifiers: Encounter type: initial encounter Fracture type: closed Qualified Code(s) : S72.002A - Fracture of unspecified part of neck of left femur, initial encounter for closed fracture (3) COPD (chronic obstructive pulmonary disease) Current Visit: Yes Status: Chronic Not currently in exacerbation. O2 sat is currently 96 on 3 L O2 via nasal cannula. Plan: -Albuterol inhaler 2 puffs IH every 4 -Prednisone 20 mg by mouth daily. Qualifiers: COPD type: unspecified COPD Qualified Code(s): J44.9 - Chronic obstructive pulmonary disease, unspecified (4) Hypotension Current Visit: Yes Status: Acute Likely secondary to pulmonary emboli found on CT on 11/13/17. -Dopamine 400 mg in 250 mL IVC 5.5 mcg/kg/m; will wean off as tolerated. -Last blood pressure reading was 122/81. Qualifiers: Hypotension type: unspecified hypotension type Qualified Code(s): I95.9 - Hypotension, unspecified (5) Hypoxia Current Visit: Yes Status: Acute Patient was initially hypoxic and hypotensive due to pulmonary emboli O2 saturations currently 96% on 3 L of O2 via nasal cannula Plan: -Continue oxygen therapy and DuoNebs as needed. (6) DVT prophylaxis Current Visit: Yes Status: Acute Subjective Principal diagnosis: POD#1 s/p left hip IM nailing 11/12/17 Interval history: Patient was seen and examined this morning. Patient reports that she is feeling well today. She currently denies having any shortness of breath or chest pain. She denies feeling any pain in her hip. She is resting comfortably in bed and has no complaints at this time. Does not appear to be in respiratory distress. Currently on 3 L of oxygen via nasal cannula. Objective PUL Vital signs: Last Vital Signs Temp 97.8 F 11/14/17 07:31 Pulse 96 11/14/17 08:00 Resp 18 11/14/17 08:00 BP 122/81 11/14/17 08:00 Pulse Ox 97 11/14/17 08:00 General appearance: no acute distress, alert Effort: normal Auscultation: bilateral: clear Cardiovascular: regular rate and rhythm mood appropriate, affect normal Results - Laboratory Findings CBC and BMP: 11/14/17 06:52 11/14/17 06:52 PT/INR, D-dimer PT 11.9 Seconds (9.4-12.1) 11/12/17 01:07 Abnormal lab findings: Abnormal lab results RBC 3.81 M/mcL (3.82-4.97) L 11/14/17 06:52 Hgb 11.1 g/dL (11.5-15.4) L 11/14/17 06:52 Hct 34.8 % (35.3-44.9) L 11/14/17 06:52 Nucleated RBCs/100 WBC 0.2 /100 WBC (0) H 11/13/17 04:23 Creatinine 0.53 mg/dL (0.60-1.20) L 11/14/17 06:52 Glucose 117 mg/dL (70-105) H 11/14/17 06:52 POC Glucose 163 (58-89) H 11/13/17 16:20 Calcium 8.0 mg/dL (8.6-10.3) L 11/14/17 06:52 Phosphorus 2.2 mg/dL (2.7-4.5) L 11/12/17 01:07 AST 11 Units/L (13-39) L 11/12/17 01:07 Troponin I 0.29 ng/mL (< 0.04) H* 11/13/17 15:04 B-Natriuretic Peptide 490 pg/mL (Less than 100) H 11/13/17 15:04 Serum Total Protein 5.7 g/dL (6.4-8.9) L 11/12/17 01:07 Albumin 3.4 g/dL (3.5-5.7) L 11/12/17 01:07 Globulin 2.3 g/dL (2.4-3.5) L 11/12/17 01:07 Triglycerides 184 mg/dL (< 150) H 11/12/17 01:07 Cholesterol 236 mg/dL (< 200) H 11/12/17 01:07 LDL Cholesterol, Calc 148 mg/dL (0-99) H 11/12/17 01:07 VLDL Cholesterol, Calc 37 mg/dL (< 31) H 11/12/17 01:07 - Clinical Findings Intake & Output: Intake & Output 11/13/17 11/14/17 11/14/17 23:59 07:59 15:59 Intake Total 1000 / 1000 240 / 240 Output Total 1100 / 1100 350 / 350 Balance -100 / -100 -110 / -110 Weight 71.5 kg 71.5 kg - VTE Documentation of Mechanical Device: Intermittent pneumatic compression device Consult Discharge Plan - Plan Referrals: Ree Fan MD [Primary Care Provider] - (patient is going to [facility] no PCP appointment needed) <Johana Blank - Last Filed: 11/14/17 15:32> Date of Encounter: 11/14/17 Assessment and Plan (1) Pulmonary embolism Current Visit: Yes Status: Deleted Qualifiers: Pulmonary embolism type: other Chronicity: acute Acute cor pulmonale presence: without acute cor pulmonale Qualified Code(s): I26.99 - Other pulmonary embolism without acute cor pulmonale (2) Hypotension Current Visit: Yes Status: Acute Qualifiers: Hypotension type: unspecified hypotension type Qualified Code(s): I95.9 - Hypotension, unspecified (3) Hypoxia Current Visit: Yes Status: Acute (4) COPD (chronic obstructive pulmonary disease) Current Visit: Yes Status: Chronic Qualifiers: COPD type: unspecified COPD Qualified Code(s): J44.9 - Chronic obstructive pulmonary disease, unspecified (5) Acute pulmonary embolism Current Visit: Yes Status: Acute Qualifiers: Qualified Code(s): I26.99 - Other pulmonary embolism without acute cor pulmonale (6) Hip fracture, left Current Visit: Yes Status: Acute Qualifiers: Encounter type: initial encounter Fracture type: closed Qualified Code(s) : S72.002A - Fracture of unspecified part of neck of left femur, initial encounter for closed fracture Objective PUL Vital signs: Last Vital Signs Temp 97.4 F L 11/14/17 11:08 Pulse 108 11/14/17 13:00 Resp 20 11/14/17 13:00 BP 116/75 11/14/17 13:00 Pulse Ox 100 11/14/17 13:00 Results - Laboratory Findings CBC and BMP: 11/14/17 06:52 11/14/17 06:52 PT/INR, D-dimer PT 11.9 Seconds (9.4-12.1) 11/12/17 01:07 Abnormal lab findings: Abnormal lab results RBC 3.81 M/mcL (3.82-4.97) L 11/14/17 06:52 Hgb 11.1 g/dL (11.5-15.4) L 11/14/17 06:52 Hct 34.8 % (35.3-44.9) L 11/14/17 06:52 Nucleated RBCs/100 WBC 0.2 /100 WBC (0) H 11/13/17 04:23 Creatinine 0.53 mg/dL (0.60-1.20) L 11/14/17 06:52 Glucose 117 mg/dL (70-105) H 11/14/17 06:52 POC Glucose 163 (58-89) H 11/13/17 16:20 Calcium 8.0 mg/dL (8.6-10.3) L 11/14/17 06:52 Phosphorus 2.2 mg/dL (2.7-4.5) L 11/12/17 01:07 AST 11 Units/L (13-39) L 11/12/17 01:07 Troponin I 0.24 ng/mL (< 0.04) H* 11/14/17 06:52 B-Natriuretic Peptide 249 pg/mL (Less than 100) H 11/14/17 06:52 Serum Total Protein 5.7 g/dL (6.4-8.9) L 11/12/17 01:07 Albumin 3.4 g/dL (3.5-5.7) L 11/12/17 01:07 Globulin 2.3 g/dL (2.4-3.5) L 11/12/17 01:07 Triglycerides 184 mg/dL (< 150) H 11/12/17 01:07 Cholesterol 236 mg/dL (< 200) H 11/12/17 01:07 LDL Cholesterol, Calc 148 mg/dL (0-99) H 11/12/17 01:07 VLDL Cholesterol, Calc 37 mg/dL (< 31) H 11/12/17 01:07 - Clinical Findings Intake & Output: Intake & Output 11/13/17 11/14/17 11/14/17 23:59 07:59 15:59 Intake Total 1000 / 1000 240 / 240 360 / 360 Output Total 1100 / 1100 350 / 350 200 / 200 Balance -100 / -100 -110 / -110 160 / 160 Weight 71.5 kg 71.5 kg 72.1 kg - Attending Attestation I examined this patient and my medical decision-making was reviewed with the Resident Physician. I agree with the documented findings, disposition and treatment plan as described except to the extent set forth below. Patient seen and examined. Labs, radiology, chart personally reviewed. Agree with resident's history and physical, assessment, plan with following comments: NIPPLE MAKER: Patient follows commands, Pulmonary: Acceptable oxygenation and ventilation Cardiovascular: stable. Patient remained hemodynamically stable and not requiring any vasopressors. Continue anticoagulation. GI: Nutrition per dietary and GI prophylaxis per routine Heme: DVT prophylaxis per routine ID: Continue antibiotics and plan to de-escalation Renal; urine out put and renal funtion reviewed Endorcine: blood glucose is monitored Lines: all lines checked and no evidence of infections Skin: skin care to prevent pressure ulcers per nursing routine care Patient remained hemodynamically stable and able to be transferred to the floor.
[2017-11-14] MEDS: Budesonide/Formoterol 160/4.5 MDI IH SCH ×2 (10:24→21:30)
--- NOTE | 2017-11-14 12:53 | Orthopedics Progress Note ---
Date of Encounter: 11/14/17 Time of Encounter: 12:30 - Assessment and Plan (1) Hip fracture, left Current Visit: Yes Status: Acute POD#2 s/p left hip IM nailing 11/12/17 Dressings c/d/i with no drainage. leave intact unless become >50% saturated continue therapy Toe touch weight bearing ice to left hip as needed Patient currently in ICU for bilateral PE. Still asymptomatic. Pulmonology managing with lovenox Hgb 11.1, stable from yesterday Will follow up in [facility] office with Renetta Gibson PA-C at [facility]. Qualifiers: Encounter type: initial encounter Fracture type: closed Qualified Code(s) : S72.002A - Fracture of unspecified part of neck of left femur, initial encounter for closed fracture Subjective Principal diagnosis: POD#2 s/p left hip IM nailing 11/12/17 Interval history: Patient laying in bed currently comfortable, currently no pain in hip. Denies any numbness or tingling to extremity. Denies calf pain. States she worked with therapy this morning and it went well. Objective Vital signs: Vital Signs Temp Pulse Resp BP Pulse Ox 11/14/17 12:00 108 22 130/60 100 11/14/17 11:12 109 11/14/17 11:08 97.4 F L 11/14/17 11:00 109 20 117/50 100 11/14/17 10:27 18 100 11/14/17 09:00 96 18 114/61 99 11/14/17 08:00 96 18 122/81 97 11/14/17 07:56 96 11/14/17 07:31 97.8 F 11/14/17 06:16 89 14 111/63 98 11/14/17 05:21 98.5 F 11/14/17 05:00 95 12 114/65 100 11/14/17 04:26 20 105/68 100 11/14/17 04:20 90 11/14/17 04:00 90 18 105/68 100 11/14/17 03:00 80 14 96/58 100 11/14/17 02:00 79 15 95/59 100 11/14/17 01:00 80 15 86/55 100 11/14/17 00:57 98.4 F 11/14/17 00:00 86 14 94/57 100 11/13/17 23:51 86 11/13/17 23:09 85 18 99/64 93 11/13/17 22:00 90 17 98/63 97 11/13/17 21:15 94 14 107/61 96 11/13/17 20:35 97.2 F L 11/13/17 20:10 90 18 101/73 95 11/13/17 19:00 86 20 99/50 100 11/13/17 17:18 89 18 83/57 98 11/13/17 16:35 94 Intake and Output 11/13/17 11/14/17 11/14/17 23:59 07:59 15:59 Intake Total 1000 / 1000 240 / 240 360 / 360 Output Total 1100 / 1100 350 / 350 200 / 200 Balance -100 / -100 -110 / -110 160 / 160 Intake: IV Fluids 1000 / 1000 0.9 % Sodium Chloride 1,000 ML 1000 / 1000 @ 100 mls/hr IVC .Q10H POOL Rx#: [id number] Oral 240 / 240 360 / 360 Output: Catheter 1100 / 1100 350 / 350 200 / 200 Other: Meal Breakfast Percent of Meal Consumed 50% Weight 71.5 kg 71.5 kg 29.1 kg Blood Glucose* 163 Patient Weight 11/14/17 23:59 Weight 29.1 kg Incision: clean and dry (dressings c/d/i with no drainage, no surrounding erythema, good dorsiflexion of foot, no calf tenderness. grossly NV intact.) - Labs CBC & BMP: 11/14/17 06:52 11/14/17 06:52 Labs: Abnormal lab results RBC 3.81 M/mcL (3.82-4.97) L 11/14/17 06:52 Hgb 11.1 g/dL (11.5-15.4) L 11/14/17 06:52 Hct 34.8 % (35.3-44.9) L 11/14/17 06:52 Nucleated RBCs/100 WBC 0.2 /100 WBC (0) H 11/13/17 04:23 Creatinine 0.53 mg/dL (0.60-1.20) L 11/14/17 06:52 Glucose 117 mg/dL (70-105) H 11/14/17 06:52 POC Glucose 163 (58-89) H 11/13/17 16:20 Calcium 8.0 mg/dL (8.6-10.3) L 11/14/17 06:52 Phosphorus 2.2 mg/dL (2.7-4.5) L 11/12/17 01:07 AST 11 Units/L (13-39) L 11/12/17 01:07 Troponin I 0.24 ng/mL (< 0.04) H* 11/14/17 06:52 B-Natriuretic Peptide 249 pg/mL (Less than 100) H 11/14/17 06:52 Serum Total Protein 5.7 g/dL (6.4-8.9) L 11/12/17 01:07 Albumin 3.4 g/dL (3.5-5.7) L 11/12/17 01:07 Globulin 2.3 g/dL (2.4-3.5) L 11/12/17 01:07 Triglycerides 184 mg/dL (< 150) H 11/12/17 01:07 Cholesterol 236 mg/dL (< 200) H 11/12/17 01:07 LDL Cholesterol, Calc 148 mg/dL (0-99) H 11/12/17 01:07 VLDL Cholesterol, Calc 37 mg/dL (< 31) H 11/12/17 01:07 - VTE Documentation of Mechanical Device: Intermittent pneumatic compression device Consult Discharge Plan - Plan Referrals: Ree Fan MD [Primary Care Provider] - (patient is going to [facility] no PCP appointment needed)
[2017-11-14] MEDS ORDERED: Sennosides 8.6 MG TABLET PO PRN (14:03)
[2017-11-14] MEDS ORDERED: Temazepam 15 MG CAPSULE PO PRN (14:03)
[2017-11-14] MEDS ORDERED: *HR* Promethazine 25 MG/ML VIAL IV PRN (14:03)
[2017-11-14] MEDS ORDERED: Acetaminophen 325 MG TABLET PO PRN (14:03)
[2017-11-14] MEDS ORDERED: Naloxone 0.4 MG/ML INJ IVP PRN (14:03)
[2017-11-14] MEDS: Ondansetron 4 MG/2 ML VIAL IVP PRN (14:34)
[2017-11-14] MEDS: *HR* Morphine 2 MG/ML SYRINGE IVP PRN ×2 (14:35→21:20)
[2017-11-14] MEDS: Levofloxacin 750 MG/150 ML 750 MG/150 ML BAG IVPB SCH (15:44)
[2017-11-14] MEDS: rOPINIRole 0.25 MG TABLET PO SCH (19:20)
[2017-11-15] MEDS: *HR* OxyCODONE Immed Rel 5 MG TABLET PO PRN ×4 (02:33→23:37)
[2017-11-15] MEDS: Ipratropium/Albuterol Neb 3 ML IH SCH ×4 (03:45→22:38)
[2017-11-15] MEDS: *HR* Enoxaparin 80 MG/0.8 ML SYRINGE SQ SCH (05:39)
[2017-11-15 08:46] LABS: Basophils % 0.3 %; Eosinophils # 0.1 K/mcL (0.0-0.6); Eosinophils % 1.3 %; Hematocrit 31.7 % (35.3-44.9); Hemoglobin 10.4 g/dL (11.5-15.4); Immature Granulocytes % 0.7 % (0-4); Immature Platelets 5.1 % (1.1-6.1); Lymphocytes # 1.3 K/mcL (0.6-4.6); Lymphocytes % 13.3 %; Mean Corpuscular HGB Conc 32.8 g/dL (31.6-35.5); Mean Corpuscular Hemoglobin 29.1 pg (28.0-33.3); Mean Corpuscular Volume 88.8 fL (83.0-100.0); Mean Platelet Volume 9.9 fL (9.4-12.4); Monocytes # 0.9 K/mcL (0.0-1.3); Monocytes % 9.7 %; Neutrophils # 7.1 K/mcL (1.6-8.9); Platelet Count 179 K/mcL (140-400); Red Blood Count 3.57 M/mcL (3.82-4.97); Red Cell Distribution Width 14.3 % (11.5-14.5); Segmented Neutrophils % 74.7 %
[2017-11-15 08:59] LABS: BUN/Creatinine Ratio 13 (6-26); Blood Urea Nitrogen 7 mg/dL (8-23); Calcium 8.9 mg/dL (8.6-10.3); Carbon Dioxide 25 mEq/L (23-29); Chloride 105 mEq/L (98-107); Glucose 137 mg/dL (70-105); Osmolality,Calculated 284 (280-300); Potassium 3.6 mEq/L (3.5-5.1); Sodium 137 mEq/L (136-145); eGFR For African Americans > 60 (> 60); eGFR For Non-African Americans > 60 (> 60)
--- NOTE | 2017-11-15 09:23 | Internal Med Progress Note ---
<Oriana Renae - Last Filed: 11/15/17 12:01> Date of Encounter: 11/15/17 Time of Encounter: 09:00 - Assessment and plan (1) Acute pulmonary embolism Current Visit: Yes Status: Acute Assessment and plan: CTA 11/13/2017 showed acute bilateral pulmonary emboli in the segmental pulmonary arteries with evidence of at least mild right heart strain. Most likely due to immobility from fall/ hip fracture home and surgery Echo demonstrated LVEF 65%, mild left ventricular diastolic dysfunction, mild- moderate tricuspid regurgitation, mild-moderate pulmonary hypertension Troponin trending down Plan: stop lovenox start Eliquis for patient to be discharged on Monitir INR monitor for bleeding Qualifiers: Qualified Code(s): I26.99 - Other pulmonary embolism without acute cor pulmonale (2) Hip fracture, left Current Visit: Yes Status: Acute Assessment and plan: s/p left hip IM nailing 11/12/2017 Plan: will D/C tomorrow to rehab facility Ice hip PRN oxycodone and tylenol for pain management continue therapy of toe touch weight bearing Will follow up in [facility] office with Renetta Gibson PA-C Qualifiers: Encounter type: initial encounter Fracture type: closed Qualified Code(s) : S72.002A - Fracture of unspecified part of neck of left femur, initial encounter for closed fracture (3) COPD (chronic obstructive pulmonary disease) Current Visit: Yes Status: Chronic Assessment and plan: Not an exacerbation at this time. 100% saturation on 3L continue albuterol and duonebs continue oxygen therapy PRN continue symbicort continue home prednisone 20mg qd Qualifiers: COPD type: unspecified COPD Qualified Code(s): J44.9 - Chronic obstructive pulmonary disease, unspecified (4) Hypotension Current Visit: Yes Status: Acute Assessment and plan: Most likely due to PE found on CTA 11/13/2017 BP stable Hgb 10.4 2 units RBCs given total Qualifiers: Hypotension type: unspecified hypotension type Qualified Code(s): I95.9 - Hypotension, unspecified (5) Hypoxia Current Visit: Yes Status: Acute Assessment and plan: Acute, post-op. Later continued most likely due to PE found on CT 11/13/2017 CXR 11/12/2017 showed nonspecific opacity in lateral lower left chest which could be consolidation or scar or focal nodule Now 100% saturation on 3L denies shortness of breathe continue Levaquin (6) Hypertension Current Visit: Yes Status: Chronic Assessment and plan: BP stable Continue home lisinopril Qualifiers: Hypertension type: essential hypertension Qualified Code(s): I10 - Essential (primary) hypertension (7) DVT prophylaxis Current Visit: Yes Status: Acute Assessment and plan: on lovenox for PE - Subjective Interval history: She has no complaints at this time. She stated that they forgot her dinner last night and is looking forward to breakfast today. She denied shortness of breathe and chest pain. She wanted to know when she can be discharged to a rehab facility. - Constitutional Vitals: Temp Pulse Resp BP Pulse Ox 97.9 F 92 12 102/62 100 11/15/17 08:00 11/15/17 03:46 11/15/17 03:46 11/15/17 03:46 11/15/17 03:46 General appearance: Present: A&O X 3, pleasant, no acute distress Exam: Gen.: Vitals noted. No acute distress. AAOx3 HEENT: oropharynx clear, Normocephalic, atraumatic Neck: Supple. No adenopathy. Cardiac: RRR, no murmur, +S1/S2 Pulmonary: CTA bilaterally, no wheezes, rales or rhonchi, equal chest expansion Abdomen: soft, nontender, Bowel sounds noted, no guarding MSK: no joint swelling noted Extremities: no BLE edema, nontender calf, no cyanosis or clubbing Neuro: A&Ox3 Psych: Appropriate mood and behavior Internal Medicine: Result - Labs CBC & Chem 7: 11/15/17 08:37 11/15/17 08:37 Labs: Short CBC 11/15/17 Range/Units 08:37 WBC 9.5 (4.3-11.1) K/mcL Hgb 10.4 L (11.5-15.4) g/dL Hct 31.7 L (35.3-44.9) % Plt Count 179 (140-400) K/mcL Neutrophils # 7.1 (1.6-8.9) K/mcL BMP 11/15/17 08:37 Sodium 137 Potassium 3.6 Chloride 105 Carbon Dioxide 25 BUN 7 L Creatinine 0.55 L Glucose 137 H Calcium 8.9 Cardiac Enzymes 11/14/17 Range/Units 06:52 Troponin I 0.24 H* (< 0.04) ng/mL - ABG Interpretation ABG results: PT/INR, D-dimer PT 11.9 Seconds (9.4-12.1) 11/12/17 01:07 - Impressions Impressions Chest CTA 11/13/17 12:12 IMPRESSION: 1. Acute bilateral pulmonary emboli in the segmental pulmonary arteries with evidence of at least mild right heart strain. 2. Patchy airspace opacities in the right lower lobe which could be related to infection or developing pulmonary infarct. 3. Coronary atherosclerosis. Critical results were called by Dr. Scott Godoy MD to Dr. Xavier On 11/13/2017 at 2:30 p.m. D/ / 11/13/2017 13:34:22 Scott Godoy MD / tahsa Interpreting Provider: Scott Godoy MD - VTE Documentation of Mechanical Device: Intermittent pneumatic compression device Consult Discharge Plan - Plan Referrals: Ree Fan MD [Primary Care Provider] - (patient is going to [facility] no PCP appointment needed) <Theodore Page - Last Filed: 11/15/17 17:35> Date of Encounter: 11/15/17 - Constitutional Vitals: Temp Pulse Resp BP Pulse Ox 97.5 F L 106 17 136/73 95 11/15/17 16:00 11/15/17 16:00 11/15/17 16:15 11/15/17 16:00 11/15/17 16:15 Internal Medicine: Result - Labs CBC & Chem 7: 11/15/17 08:37 11/15/17 08:37 Labs: Short CBC 11/15/17 Range/Units 08:37 WBC 9.5 (4.3-11.1) K/mcL Hgb 10.4 L (11.5-15.4) g/dL Hct 31.7 L (35.3-44.9) % Plt Count 179 (140-400) K/mcL Neutrophils # 7.1 (1.6-8.9) K/mcL BMP 11/15/17 08:37 Sodium 137 Potassium 3.6 Chloride 105 Carbon Dioxide 25 BUN 7 L Creatinine 0.55 L Glucose 137 H Calcium 8.9 - ABG Interpretation ABG results: PT/INR, D-dimer PT 11.9 Seconds (9.4-12.1) 11/12/17 01:07 - Attending Attestation I conducted a face to face diagnostic evaluation of this patient and my medical decision-making was reviewed with the Resident Physician, Dr Oriana Renae. I agree with the documented findings, disposition and treatment plan as described except to the extent set forth below: Will discontinue Hall tomorrow morning. Continue with PT. Start anticoagulation with Eliquis. Theodore Page MD
[2017-11-15] MEDS: predniSONE 20 MG TABLET PO SCH (09:26)
[2017-11-15] MEDS: Famotidine 20 MG TABLET PO SCH ×2 (09:27→19:36)
[2017-11-15] MEDS: Budesonide/Formoterol 160/4.5 MDI IH SCH ×2 (09:50→22:39)
[2017-11-15] MEDS: Ondansetron 4 MG/2 ML VIAL IVP PRN (10:39)
[2017-11-15] MEDS: *HR* Morphine 2 MG/ML SYRINGE IVP PRN ×2 (10:39→22:58)
--- NOTE | 2017-11-15 12:19 | Electrocardiograph Report ---
[address] [address] Test Date: 2017-11-14 Pat Name: Dayan Max Department: 109 Room: [facility] Gender: F Senior Systems Programmer: : 1940 Requested By: Freddy Flores Order Number: [id number] Reading MD: Sam Mcgregor MD Measurements Intervals [place] Rate: 141 P: CA: 0 QRS: 11 QRSD: 98 T: 39 QT: 315 QTc: 397 Interpretive Statements MULTIFOCAL ATRIAL TACHYCARDIA INCOMPLETE RIGHT BUNDLE BRANCH BLOCK Electronically Signed On 11-15-2017 12:17:38 EST by Sam Mcgregor MD Electronically Signed On 11-18-2017 7:45:22 EST by Sam Mcgregor MD
[2017-11-15] MEDS ORDERED: Levofloxacin 750 MG/150 ML 750 MG/150 ML BAG IVPB SCH (13:00)
--- NOTE | 2017-11-15 13:19 | Orthopedics Progress Note ---
Date of Encounter: 11/15/17 Time of Encounter: 13:00 - Assessment and Plan (1) Hip fracture, left Current Visit: Yes Status: Acute POD#3 s/p left hip IM nailing 11/12/17 Dressings c/d/i with no drainage. leave intact unless become >50% saturated continue therapy Toe touch weight bearing ice to left hip as needed Will follow up in [facility] office with Renetta Gibson PA-C at [facility]. Qualifiers: Encounter type: initial encounter Fracture type: closed Qualified Code(s) : S72.002A - Fracture of unspecified part of neck of left femur, initial encounter for closed fracture Subjective Principal diagnosis: POD#3 s/p left hip IM nailing 11/12/17 Interval history: Patient laying in bed currently comfortable, currently no pain in hip. Denies any numbness or tingling to extremity. Denies calf pain. States she continues to work with therapy and is going well. Objective Vital signs: Vital Signs Temp Pulse Resp BP Pulse Ox 11/15/17 13:07 97.6 F 97 20 125/73 94 11/15/17 09:53 20 100 11/15/17 09:39 97.9 F 97 18 121/81 97 11/15/17 08:00 97.9 F 11/15/17 04:59 97.7 F 11/15/17 03:46 92 12 102/62 100 11/15/17 03:45 19 98 11/15/17 03:40 98 11/15/17 00:38 97.3 F L 11/15/17 00:00 108 14 118/64 95 11/14/17 21:30 18 98 11/14/17 20:24 98.1 F 11/14/17 20:00 108 21 122/80 97 11/14/17 19:30 104 11/14/17 18:00 111 20 112/67 99 11/14/17 16:09 20 100 11/14/17 16:00 115 22 121/77 98 11/14/17 15:33 104 Intake and Output 11/14/17 11/15/17 11/15/17 23:59 07:59 15:59 Intake Total 210 / 210 240 / 240 Output Total 400 / 400 700 / 700 125 / 125 Balance -190 / -190 -460 / -460 -125 / -125 Intake: IV Fluids 150 / 150 Levaquin Premix 750mg/150 mL 150 / 150 750 mg In 150 ml @ 100 mls/hr IVPB Q24H [facility] Rx#:[id number] Oral 60 / 60 240 / 240 Output: Catheter 400 / 400 700 / 700 125 / 125 Other: Weight 73.8 kg Patient Weight 11/15/17 23:59 Weight 73.8 kg Incision: clean and dry (dressings c/d/i with no visible drainage or erythema) - Labs CBC & BMP: 11/15/17 08:37 11/15/17 08:37 Labs: Abnormal lab results RBC 3.57 M/mcL (3.82-4.97) L 11/15/17 08:37 Hgb 10.4 g/dL (11.5-15.4) L 11/15/17 08:37 Hct 31.7 % (35.3-44.9) L 11/15/17 08:37 Nucleated RBCs/100 WBC 0.2 /100 WBC (0) H 11/13/17 04:23 BUN 7 mg/dL (8-23) L 11/15/17 08:37 Creatinine 0.55 mg/dL (0.60-1.20) L 11/15/17 08:37 Glucose 137 mg/dL (70-105) H 11/15/17 08:37 POC Glucose 163 (58-89) H 11/13/17 16:20 Phosphorus 2.2 mg/dL (2.7-4.5) L 11/12/17 01:07 AST 11 Units/L (13-39) L 11/12/17 01:07 Troponin I 0.24 ng/mL (< 0.04) H* 11/14/17 06:52 B-Natriuretic Peptide 249 pg/mL (Less than 100) H 11/14/17 06:52 Serum Total Protein 5.7 g/dL (6.4-8.9) L 11/12/17 01:07 Albumin 3.4 g/dL (3.5-5.7) L 11/12/17 01:07 Globulin 2.3 g/dL (2.4-3.5) L 11/12/17 01:07 Triglycerides 184 mg/dL (< 150) H 11/12/17 01:07 Cholesterol 236 mg/dL (< 200) H 11/12/17 01:07 LDL Cholesterol, Calc 148 mg/dL (0-99) H 11/12/17 01:07 VLDL Cholesterol, Calc 37 mg/dL (< 31) H 11/12/17 01:07 - VTE Documentation of Mechanical Device: Intermittent pneumatic compression device Consult Discharge Plan - Plan Referrals: Ree Fan MD [Primary Care Provider] - (patient is going to [facility] no PCP appointment needed)
--- NOTE | 2017-11-15 13:26 | Pulmonology Progress Note ---
Date of Encounter: 11/15/17 Time of Encounter: 09:00 Assessment and Plan (1) Acute pulmonary embolism Current Visit: Yes Status: Acute CTA performed on 11/13/17 demonstrated acute bilateral pulmonary emboli in segmental pulmonary arteries with evidence of at least mild strain. Patient initially had hypoxia and hypotension; last O2 sat was 97 on 3 L of O2. BNP and troponin initially normal; Subsequent troponin was elevated at 0.29; possibly 2/2 R ventricular strain. ECHO was ordered; demonstrated the following: LVEF 65%. -Mild-moderate tricuspid regurgitation. -Mild L ventricular diastolic dysfunction. -Mild-moderate pulmonary hypertension. -Mid R ventricle is moderately dilated (basal and longitudinal size Plan: -Lovenox will be discontinued; will be started on Eliquis -Patient will remain in ICU until bed becomes available. -Troponin and BNP are both trending down. -Continue to monitor vital signs. Qualifiers: Qualified Code(s): I26.99 - Other pulmonary embolism without acute cor pulmonale (2) Atrial fibrillation with RVR Current Visit: Yes Status: Acute Yesterday evening, patient developed A. fib with RVR. -Heart rate was between 110 and 120. -Patient was started on Cardizem drip. -This morning, patient's heart rate was 92 bpm. -Patient was asymptomatic throughout. Plan: -Continuous telemetry. (3) Hip fracture, left Current Visit: Yes Status: Acute Patient is status post left hip fracture. Postop day 3 left hip IM nailing 11/12/17. Plan per orthopedics: -Ice to left hip as needed -continue therapy toe touch weightbearing -follow-up in the outpatient setting Qualifiers: Encounter type: initial encounter Fracture type: closed Qualified Code(s) : S72.002A - Fracture of unspecified part of neck of left femur, initial encounter for closed fracture (4) COPD (chronic obstructive pulmonary disease) Current Visit: Yes Status: Chronic Not currently in exacerbation. O2 sat is currently 92 on oxygen via nasal cannula Plan: -Albuterol inhaler 2 puffs IH every 4 -Prednisone 20 mg by mouth daily. Qualifiers: COPD type: unspecified COPD Qualified Code(s): J44.9 - Chronic obstructive pulmonary disease, unspecified (5) Hypotension Current Visit: Yes Status: Acute Likely secondary to pulmonary emboli found on CT on 11/13/17. -Hypotension has resolved. -Hold lisinopril/hydrochlorothiazide for blood pressure less than 160. Qualifiers: Hypotension type: unspecified hypotension type Qualified Code(s): I95.9 - Hypotension, unspecified (6) Hypoxia Current Visit: Yes Status: Acute Patient was initially hypoxic and hypotensive due to pulmonary emboli Plan: -Continue oxygen therapy and DuoNebs as needed. (7) DVT prophylaxis Current Visit: Yes Status: Acute Subjective Principal diagnosis: POD#3 s/p left hip IM nailing 11/12/17 Interval history: Patient was seen and examined this morning. Patient reports that she is feeling well today. She currently denies having any shortness of breath or chest pain. No complaints at this time. Objective PUL Vital signs: Last Vital Signs Temp 97.6 F 11/15/17 13:07 Pulse 97 11/15/17 13:07 Resp 20 11/15/17 13:07 BP 125/73 11/15/17 13:07 Pulse Ox 94 11/15/17 13:07 General appearance: no acute distress Auscultation: bilateral: clear Cardiovascular: other (Tachycardic) normal mental status Results - Laboratory Findings CBC and BMP: 11/15/17 08:37 11/15/17 08:37 PT/INR, D-dimer PT 11.9 Seconds (9.4-12.1) 11/12/17 01:07 Abnormal lab findings: Abnormal lab results RBC 3.57 M/mcL (3.82-4.97) L 11/15/17 08:37 Hgb 10.4 g/dL (11.5-15.4) L 11/15/17 08:37 Hct 31.7 % (35.3-44.9) L 11/15/17 08:37 Nucleated RBCs/100 WBC 0.2 /100 WBC (0) H 11/13/17 04:23 BUN 7 mg/dL (8-23) L 11/15/17 08:37 Creatinine 0.55 mg/dL (0.60-1.20) L 11/15/17 08:37 Glucose 137 mg/dL (70-105) H 11/15/17 08:37 POC Glucose 163 (58-89) H 11/13/17 16:20 Phosphorus 2.2 mg/dL (2.7-4.5) L 11/12/17 01:07 AST 11 Units/L (13-39) L 11/12/17 01:07 Troponin I 0.24 ng/mL (< 0.04) H* 11/14/17 06:52 B-Natriuretic Peptide 249 pg/mL (Less than 100) H 11/14/17 06:52 Serum Total Protein 5.7 g/dL (6.4-8.9) L 11/12/17 01:07 Albumin 3.4 g/dL (3.5-5.7) L 11/12/17 01:07 Globulin 2.3 g/dL (2.4-3.5) L 11/12/17 01:07 Triglycerides 184 mg/dL (< 150) H 11/12/17 01:07 Cholesterol 236 mg/dL (< 200) H 11/12/17 01:07 LDL Cholesterol, Calc 148 mg/dL (0-99) H 11/12/17 01:07 VLDL Cholesterol, Calc 37 mg/dL (< 31) H 11/12/17 01:07 - Clinical Findings Intake & Output: Intake & Output 11/14/17 11/15/17 11/15/17 23:59 07:59 15:59 Intake Total 210 / 210 240 / 240 Output Total 400 / 400 700 / 700 125 / 125 Balance -190 / -190 -460 / -460 -125 / -125 Weight 73.8 kg - VTE Documentation of Mechanical Device: Intermittent pneumatic compression device Consult Discharge Plan - Plan Referrals: Ree Fan MD [Primary Care Provider] - (patient is going to [facility] no PCP appointment needed)
[2017-11-15] MEDS: Levofloxacin 750 MG/150 ML 750 MG/150 ML BAG IVPB SCH (16:16)
[2017-11-15] MEDS: Apixaban 5 MG TABLET PO SCH (19:35)
[2017-11-15] MEDS: rOPINIRole 0.25 MG TABLET PO SCH (19:36)
[2017-11-16] MEDS: Nystatin Cream 15 GM TUBE TP SCH ×5 (01:13→21:13)
[2017-11-16] MEDS: *HR* Morphine 2 MG/ML SYRINGE IVP PRN (03:09)
[2017-11-16 04:01] LABS: Basophils % 0.2 %; Eosinophils # 0.1 K/mcL (0.0-0.6); Eosinophils % 1.2 %; Hematocrit 31.4 % (35.3-44.9); Hemoglobin 10.1 g/dL (11.5-15.4); Immature Granulocytes % 0.8 % (0-4); Lymphocytes # 0.9 K/mcL (0.6-4.6); Lymphocytes % 11.2 %; Mean Corpuscular HGB Conc 32.2 g/dL (31.6-35.5); Mean Corpuscular Hemoglobin 28.9 pg (28.0-33.3); Mean Corpuscular Volume 89.7 fL (83.0-100.0); Monocytes # 0.8 K/mcL (0.0-1.3); Monocytes % 9.7 %; Neutrophils # 6.4 K/mcL (1.6-8.9); Nucleated Red Blood Cells 0.2 /100 WBC (0); Platelet Count 173 K/mcL (140-400); Red Cell Distribution Width 14.3 % (11.5-14.5); Segmented Neutrophils % 76.9 %
[2017-11-16] MEDS: Ipratropium/Albuterol Neb 3 ML IH SCH ×4 (04:42→21:56)
[2017-11-16] MEDS: Famotidine 20 MG TABLET PO SCH ×2 (09:29→21:12)
[2017-11-16] MEDS: Apixaban 5 MG TABLET PO SCH (09:29)
[2017-11-16] MEDS: predniSONE 20 MG TABLET PO SCH (09:30)
[2017-11-16] MEDS: Budesonide/Formoterol 160/4.5 MDI IH SCH ×2 (10:00→21:56)
[2017-11-16] MEDS ORDERED: 0.9 % Sodium Chloride 500 ML IVC ONE (10:10)
--- NOTE | 2017-11-16 10:14 | Internal Med Progress Note ---
<Oriana Renae - Last Filed: 11/16/17 14:32> Date of Encounter: 11/16/17 Time of Encounter: 10:13 - Assessment and plan (1) Syncope Current Visit: Yes Status: Acute Assessment and plan: Patient expensed a syncopal event while moving from the bedside commode to the bed. Her 2 nurses were assisting her when she passed out in the bed. Upon the arrival of myself an Dr. Page the patient was awake and alert. She only complained of shortness of breath and denied chest pain. She can not remember the syncopal event. An EKG was obtained and showed a fib. She was then placed on BiPAP. This is most likely due to vasovagal and a fib which cause decreased perfusion of blood to the brain and hence the syncopal event. The patient complains of shortness of breath and is currently on 6 L of oxygen with oxygen saturation of 93% Repeat troponin 0.09 11/16/2017 Repeat CXR 11/16/2017 minimal residuals subsegmental atelectasis central upper right lung Plan: bilateral lower extremity ultrasound bedrest repeat echocardiogram repeat CTA chest close monitoring of patient and vitals Qualifiers: Syncope type: unspecified Qualified Code(s): R55 - Syncope and collapse (2) Acute pulmonary embolism Current Visit: Yes Status: Acute Assessment and plan: CTA 11/13/2017 showed acute bilateral pulmonary emboli in the segmental pulmonary arteries with evidence of at least mild right heart strain. Most likely due to immobility from fall/ hip fracture home and surgery Echo demonstrated LVEF 65%, mild left ventricular diastolic dysfunction, mild- moderate tricuspid regurgitation, mild-moderate pulmonary hypertension Troponin trending down Plan: continue Eliquis Monitir INR monitor for bleeding Qualifiers: Acute cor pulmonale presence: without acute cor pulmonale Qualified Code(s) : I26.99 - Other pulmonary embolism without acute cor pulmonale (3) Hip fracture, left Current Visit: Yes Status: Acute Assessment and plan: POD#4 s/p left hip IM nailing 11/12/2017 Plan: will D/C to [facility] Ice hip PRN oxycodone and tylenol for pain management therapy of toe touch weight bearing Will follow up in [facility] office with Renetta Gibson PA-C Qualifiers: Encounter type: initial encounter Fracture type: closed Qualified Code(s) : S72.002A - Fracture of unspecified part of neck of left femur, initial encounter for closed fracture (4) COPD (chronic obstructive pulmonary disease) Current Visit: Yes Status: Chronic Assessment and plan: Not an exacerbation at this time. continue albuterol and duonebs continue oxygen therapy PRN continue symbicort continue home prednisone 20mg qd Qualifiers: COPD type: unspecified COPD Qualified Code(s): J44.9 - Chronic obstructive pulmonary disease, unspecified (5) Hypoxia Current Visit: Yes Status: Acute Assessment and plan: Acute, post-op. Later continued most likely due to PE found on CT 11/13/2017 CXR 11/12/2017 showed nonspecific opacity in lateral lower left chest which could be consolidation or scar or focal nodule patient reports shortness of breath Now 93% saturation on 6L continue Levaquin (6) Hypotension Current Visit: Yes Status: Acute Assessment and plan: Resolved Most likely due to PE found on CTA 11/13/2017 BP stable Hgb 10.4 2 units RBCs given total Qualifiers: Hypotension type: unspecified hypotension type Qualified Code(s): I95.9 - Hypotension, unspecified (7) Hypertension Current Visit: Yes Status: Chronic Assessment and plan: BP stable Continue home lisinopril Qualifiers: Hypertension type: essential hypertension Qualified Code(s): I10 - Essential (primary) hypertension (8) DVT prophylaxis Current Visit: Yes Status: Acute Assessment and plan: on Eliquis for PE - Subjective Interval history: Patient in the morning reported that she was looking forward to being discharged today to [facility]. She denied chest pain, palpitations, shortness of breath. However, later in the morning the patient had a syncopal event while moving from the bedside commode to the bed. Her 2 nurses were assisting her when she passed out in the bed. Upon the arrival of myself and Dr. Page the patient was awake and alert. She only complained of shortness of breath and denied chest pain. She can not remember the syncopal event. Family were at bedside doing the whole event. - Constitutional Vitals: Temp Pulse Resp BP Pulse Ox 96.4 F L 114 32 134/83 91 11/16/17 10:06 11/16/17 10:06 11/16/17 10:06 11/16/17 10:06 11/16/17 10:06 General appearance: Present: A&O X 3, pleasant, no acute distress Exam: Gen.: Vitals noted. No acute distress. AAOx3 HEENT: oropharynx clear, Normocephalic, atraumatic Neck: Supple. No adenopathy. Cardiac: no murmur, +S1/S2 Pulmonary: CTA bilaterally, no wheezes, rales or rhonchi, equal chest expansion Abdomen: soft, nontender, Bowel sounds noted, no guarding Extremities: no BLE edema, nontender calf, no cyanosis or clubbing Neuro: A&Ox3, moves all extremities Psych: Appropriate mood and behavior Internal Medicine: Result - Labs CBC & Chem 7: 11/16/17 03:52 11/15/17 08:37 Labs: Short CBC 11/16/17 Range/Units 03:52 WBC 8.3 (4.3-11.1) K/mcL Hgb 10.1 L (11.5-15.4) g/dL Hct 31.4 L (35.3-44.9) % Plt Count 173 (140-400) K/mcL Neutrophils # 6.4 (1.6-8.9) K/mcL - ABG Interpretation ABG results: PT/INR, D-dimer PT 11.9 Seconds (9.4-12.1) 11/12/17 01:07 - VTE Documentation of Mechanical Device: Intermittent pneumatic compression device Consult Discharge Plan - Plan Referrals: Renetta Gibson, PAC [Physician Travel Coordinator] - 11/29/17 1:00 pm <Theodore Page - Last Filed: 11/16/17 18:53> Date of Encounter: 11/16/17 - Constitutional Vitals: Temp Pulse Resp BP Pulse Ox 98.4 F 104 20 128/72 90 11/16/17 16:15 11/16/17 16:15 11/16/17 16:36 11/16/17 16:15 11/16/17 16:36 Internal Medicine: Result - Labs CBC & Chem 7: 11/16/17 17:26 11/15/17 08:37 Labs: Short CBC 11/16/17 11/16/17 Range/Units 03:52 17:26 WBC 8.3 8.6 (4.3-11.1) K/mcL Hgb 10.1 L 10.5 L (11.5-15.4) g/dL Hct 31.4 L 32.5 L (35.3-44.9) % Plt Count 173 186 (140-400) K/mcL Neutrophils # 6.4 (1.6-8.9) K/mcL Cardiac Enzymes 11/16/17 Range/Units 10:25 Troponin I 0.09 H* (< 0.04) ng/mL - ABG Interpretation ABG results: PT/INR, D-dimer PT 18.3 Seconds (9.4-12.1) H D 11/16/17 17:26 - Impressions Impressions Chest X-Ray 11/16/17 10:08 IMPRESSION: Calcific atherosclerotic disease aorta. Minimal residual subsegmental atelectasis central upper right lung. D/ / Lonnie Taylor / Lonnie Taylor Interpreting Provider: Lonnie Taylor Chest CTA 11/16/17 14:48 IMPRESSION: Re- demonstrated bilateral main pulmonary artery and proximal division pulmonary arterial emboli. Focal consolidation in the right lower lobe appears similar. Peripheral nodularity in the right upper, middle and lower lobes also appear similar. No communication was made on these findings as the referring physician is already aware of the bilateral pulmonary emboli according to the ordering notes. D/ / Melquiades Martinez / Melquiades Martinez Interpreting Provider: Melquiades Martinez - Attending Attestation I conducted a face to face diagnostic evaluation of this patient and my medical decision-making was reviewed with the Resident Physician, Dr Renae. I agree with the documented findings, disposition and treatment plan as described except to the extent set forth below: Patient had a syncopal event. I reviewed her telemetry preceding during and following the event. She was in sinus tachycardia with heart rates in the 150s and then she went into rapid A. fib with heart rates 161-170. We started Cardizem drip which brought her heart rate down slowly into the 80s and 70s. She was hypotensive and she syncopized. We will give her a small bolus of fluid. Concern is for recurrent PE and therefore we repeat a CTA of the chest. I personally reviewed the images and discussed the findings with the radiologist. It appears that there is extension of the clot on the right from the segmental pulmonary arteries into the main right pulmonary artery. In view of these new findings and her syncope we will stop eloquence for now and will start heparin drip. Given her recent surgery she is not a good candidate for TPA. I repeated an echocardiogram to look for RV strain. We will keep her on bedrest with cardiac monitoring. She is at very high risk for morbidity and mortality due to extension of her pulmonary embolus in spite of adequate anticoagulation. She is not a candidate for IVC filter since she cannot be anticoagulated and there is no evidence of recurrence of her pulmonary emboli. We will follow up with lower extremity Dopplers. Theodore Page MD The high probability of emergent and significant clinical decompensation with potential impairment of cardiovascular and respiratory function required my full attention and presence at the bedside. I spent 50 minutes of critical care time which involved decision making of high complexity to assess, manipulate, and support vital organ system, in order to prevent further life threatening deterioration of the patient's condition. The critical care time was spent in the patient's room or its close proximity and involved obtaining updated history from the patient and nursing staff, examining the patient, reviewing EKGs, imaging studies and laboratory data, ordering medications and laboratory studies, and reevaluating for clinical response. The time spent teaching or performing any procedures was not included in the critical care time stated above.
--- NOTE | 2017-11-16 10:50 | Orthopedics Progress Note ---
Date of Encounter: 11/16/17 Time of Encounter: 10:30 - Assessment and Plan (1) Hip fracture, left Current Visit: Yes Status: Acute POD#4 s/p left hip IM nailing 11/12/17 Dressings c/d/i with no drainage. leave intact unless become >50% saturated. opsite to be changed prior to discharge continue therapy Toe touch weight bearing, temporarily on hold due to earlier vagal episode ice to left hip as needed Plan was for discharge today to [facility] but hospitalist started new work up for patient's earlier vagal response. Hospitalist to manage this. Will follow up in [facility] office with Renetta Gibson PA-C on 11/29/17 at 1:00pm. Qualifiers: Encounter type: initial encounter Fracture type: closed Qualified Code(s) : S72.002A - Fracture of unspecified part of neck of left femur, initial encounter for closed fracture Subjective Principal diagnosis: POD#4 s/p left hip IM nailing 11/12/17 Interval history: Patient laying in bed. She recently was up to [facility] but felt dizzy passed out just as she returned to bed. Became hypotensive and tachycardic. Patient currently on BiPAP and feeling tired. Currently no pain in hip or lower extremity. Declined therapy this morning due to this episode. Objective Vital signs: Vital Signs Temp Pulse Resp BP Pulse Ox 11/16/17 10:34 93 11/16/17 10:12 96.4 F L 116 26 144/88 100 11/16/17 10:11 28 94 11/16/17 10:06 96.4 F L 114 32 134/83 91 11/16/17 07:34 98.0 F 94 17 117/76 96 11/16/17 04:42 18 93 11/16/17 02:56 98.1 F 110 18 137/89 93 11/16/17 00:12 97.7 F 11/15/17 23:42 111 20 150/88 98 11/15/17 22:39 20 98 11/15/17 19:18 112 11/15/17 19:16 97.6 F 112 19 123/88 98 11/15/17 19:06 100 11/15/17 16:15 17 95 11/15/17 16:00 97.5 F L 98 17 136/73 98 11/15/17 13:07 97.6 F 97 20 125/73 94 Intake and Output 11/15/17 11/16/17 11/16/17 23:59 07:59 15:59 Intake Total 1000 / 1000 150 / 150 Output Total 1300 / 1300 1725 / 1725 Balance -300 / -300 -1725 / -1725 150 / 150 Intake: IV Fluids 150 / 150 Levaquin Premix 750mg/150 mL 150 / 150 750 mg In 150 ml @ 100 mls/hr IVPB Q24H [facility] Rx#:[id number] Oral 1000 / 1000 Output: Catheter 1300 / 1300 1725 / 1725 Other: Stool Size Moderate Stool Consistency soft formed Stool Color Brown # Voids 1 Weight 70.851 kg Patient Weight 11/16/17 23:59 Weight 70.851 kg Incision: clean and dry (dressings to left hip c/d/i with no visible drainage or surrounding erythema, no calf tenderness. good dorsiflexion of foot) - Labs CBC & BMP: 11/16/17 03:52 11/15/17 08:37 Labs: Abnormal lab results RBC 3.50 M/mcL (3.82-4.97) L 11/16/17 03:52 Hgb 10.1 g/dL (11.5-15.4) L 11/16/17 03:52 Hct 31.4 % (35.3-44.9) L 11/16/17 03:52 Nucleated RBCs/100 WBC 0.2 /100 WBC (0) H 11/16/17 03:52 BUN 7 mg/dL (8-23) L 11/15/17 08:37 Creatinine 0.55 mg/dL (0.60-1.20) L 11/15/17 08:37 Glucose 137 mg/dL (70-105) H 11/15/17 08:37 POC Glucose 163 (58-89) H 11/13/17 16:20 Phosphorus 2.2 mg/dL (2.7-4.5) L 11/12/17 01:07 AST 11 Units/L (13-39) L 11/12/17 01:07 Troponin I 0.24 ng/mL (< 0.04) H* 11/14/17 06:52 B-Natriuretic Peptide 249 pg/mL (Less than 100) H 11/14/17 06:52 Serum Total Protein 5.7 g/dL (6.4-8.9) L 11/12/17 01:07 Albumin 3.4 g/dL (3.5-5.7) L 11/12/17 01:07 Globulin 2.3 g/dL (2.4-3.5) L 11/12/17 01:07 Triglycerides 184 mg/dL (< 150) H 11/12/17 01:07 Cholesterol 236 mg/dL (< 200) H 11/12/17 01:07 LDL Cholesterol, Calc 148 mg/dL (0-99) H 11/12/17 01:07 VLDL Cholesterol, Calc 37 mg/dL (< 31) H 11/12/17 01:07 - VTE Documentation of Mechanical Device: Intermittent pneumatic compression device Consult Discharge Plan - Plan Referrals: Renetta Gibson, PAC [Physician Wire Brush Operator] - 11/29/17 1:00 pm
[2017-11-16] MEDS: Levofloxacin 750 MG/150 ML 750 MG/150 ML BAG IVPB SCH (13:42)
[2017-11-16] MEDS ORDERED: Heparin 25,000 UNIT/500 ML D5W 25,000 UNIT/500 ML BAG IVC SCH ×2 (17:00→17:15)
[2017-11-16] MEDS: *HR* OxyCODONE Immed Rel 5 MG TABLET PO PRN ×2 (17:00→21:12)
[2017-11-16] MEDS ORDERED: *HR* Heparin 5,000 UNIT/ML VIAL IVP PRN ×2 (17:08)
[2017-11-16 17:33] LABS: Hematocrit 32.5 % (35.3-44.9); Hemoglobin 10.5 g/dL (11.5-15.4); Mean Corpuscular HGB Conc 32.3 g/dL (31.6-35.5); Mean Corpuscular Hemoglobin 29.4 pg (28.0-33.3); Mean Platelet Volume 9.8 fL (9.4-12.4); Platelet Count 186 K/mcL (140-400); Red Blood Count 3.57 M/mcL (3.82-4.97); Red Cell Distribution Width 14.5 % (11.5-14.5)
[2017-11-16 17:40] LABS: INR 1.7; Prothrombin Time 18.3 Seconds (9.4-12.1)
[2017-11-16 17:43] LABS: Activated Partial Thrombo Time 31.8 Seconds (26.0-36.0)
[2017-11-16] MEDS: rOPINIRole 0.25 MG TABLET PO SCH (21:12)
[2017-11-17] MEDS: Ipratropium/Albuterol Neb 3 ML IH SCH ×3 (04:09→16:03)
[2017-11-17] MEDS: *HR* OxyCODONE Immed Rel 5 MG TABLET PO PRN ×3 (04:46→14:17)
[2017-11-17] MEDS ORDERED: Apixaban 5 MG TABLET PO SCH (09:00)
[2017-11-17] MEDS: predniSONE 20 MG TABLET PO SCH (09:18)
[2017-11-17] MEDS: Famotidine 20 MG TABLET PO SCH (09:18)
[2017-11-17] MEDS: Nystatin Cream 15 GM TUBE TP SCH (09:30)
[2017-11-17] MEDS: Budesonide/Formoterol 160/4.5 MDI IH SCH (10:12)
[2017-11-17 10:19] LABS: Basophils # 0.1 K/mcL (0.0-0.2); Basophils % 0.6 %; Eosinophils # 0.3 K/mcL (0.0-0.6); Eosinophils % 3.1 %; Hemoglobin 10.5 g/dL (11.5-15.4); Immature Granulocytes % 1.6 % (0-4); Lymphocytes # 1.8 K/mcL (0.6-4.6); Lymphocytes % 19.5 %; Mean Corpuscular HGB Conc 31.8 g/dL (31.6-35.5); Mean Corpuscular Hemoglobin 28.9 pg (28.0-33.3); Mean Corpuscular Volume 90.9 fL (83.0-100.0); Mean Platelet Volume 9.9 fL (9.4-12.4); Monocytes # 0.8 K/mcL (0.0-1.3); Monocytes % 8.5 %; Neutrophils # 6.2 K/mcL (1.6-8.9); Nucleated Red Blood Cells 1.1 /100 WBC (0); Platelet Count 188 K/mcL (140-400); Red Blood Count 3.63 M/mcL (3.82-4.97); Red Cell Distribution Width 14.6 % (11.5-14.5); Segmented Neutrophils % 66.7 %
--- NOTE | 2017-11-17 10:19 | Internal Med Progress Note ---
Date of Encounter: 11/17/17 Time of Encounter: 10:19 - Assessment and plan (1) Syncope Current Visit: Yes Status: Acute Qualifiers: Syncope type: unspecified Qualified Code(s): R55 - Syncope and collapse (2) Acute pulmonary embolism Current Visit: Yes Status: Acute Qualifiers: Acute cor pulmonale presence: without acute cor pulmonale (3) Hip fracture, left Current Visit: Yes Status: Acute Qualifiers: Encounter type: initial encounter Fracture type: closed Qualified Code(s) : S72.002A - Fracture of unspecified part of neck of left femur, initial encounter for closed fracture (4) COPD (chronic obstructive pulmonary disease) Current Visit: Yes Status: Chronic Qualifiers: COPD type: unspecified COPD Qualified Code(s): J44.9 - Chronic obstructive pulmonary disease, unspecified (5) Hypoxia Current Visit: Yes Status: Acute (6) Hypotension Current Visit: Yes Status: Acute Qualifiers: Hypotension type: unspecified hypotension type Qualified Code(s): I95.9 - Hypotension, unspecified (7) Hypertension Current Visit: Yes Status: Chronic Qualifiers: Hypertension type: essential hypertension Qualified Code(s): I10 - Essential (primary) hypertension (8) DVT prophylaxis Current Visit: Yes Status: Acute - Subjective Interval history: Patient is alert and oriented x3. Laying in bed for a breathing treatment. She reports increased shortness of breathe and new wheezing. On 8L oxygen at 98%. She also complains of urinary incontinence, but no back pain, or fecal incontinence. - Constitutional Vitals: Temp Pulse Resp BP Pulse Ox 98.1 F 89 20 136/84 94 11/17/17 07:42 11/17/17 07:42 11/17/17 10:13 11/17/17 07:42 11/17/17 10:13 General appearance: Present: A&O X 3, pleasant, no acute distress Exam: Gen.: Vitals noted. No acute distress. AAOx3 HEENT: PERRL/EOMI, oropharynx clear, Normocephalic, atraumatic Neck: Supple. No adenopathy. Cardiac: RRR, no murmur, +S1/S2 Pulmonary: diffuse wheezes, rales or rhonchi, equal chest expansion, accessory muscle use Abdomen: soft, nontender, Bowel sounds noted, no guarding MSK: no joint swelling noted Extremities:+ non-pitting BLE edema, nontender calf, no cyanosis or clubbing Neuro: A&Ox3, moves all extremities, no focal deficits Psych: Appropriate mood and behavior Internal Medicine: Result - Labs CBC & Chem 7: 11/17/17 10:04 11/15/17 08:37 Labs: Short CBC 11/16/17 Range/Units 17:26 WBC 8.6 (4.3-11.1) K/mcL Hgb 10.5 L (11.5-15.4) g/dL Hct 32.5 L (35.3-44.9) % Plt Count 186 (140-400) K/mcL Cardiac Enzymes 11/16/17 Range/Units 10:25 Troponin I 0.09 H* (< 0.04) ng/mL - ABG Interpretation ABG results: PT/INR, D-dimer PT 18.3 Seconds (9.4-12.1) H D 11/16/17 17:26 - Impressions Impressions Chest X-Ray 11/16/17 10:08 IMPRESSION: Calcific atherosclerotic disease aorta. Minimal residual subsegmental atelectasis central upper right lung. D/ / Lonnie Taylor / Lonnie Taylor Interpreting Provider: Lonnie Taylor Echocardiogram Limited Views 11/16/17 12:29 Impressions: LVEF 60%. Normal LV chamber size, wall thickness and function. Flattened ventricular septum suggestive of RV pressure increase. Moderately dilated right ventricle. Mccullough's sign present (basal and mid RV hypokinesis with apical hypercontractility), which is a finding that is associated with pulmonary embolism. RV:LV ratio > 1. Moderate-severe pulmonary hypertension. Estimated RVSP is 52-57 mmHg, which could be underestimated (IVC not well visualized). Dr. Page notified via [place]. Left Ventricular Wall Motion: Rest Echo Findings All wall segments showed normal motion. Findings: Study Quality * Technically adequate exam. ECG Findings * Sinus tachycardia. Left Ventricle * LVEF 60%. * Normal LV chamber size, wall thickness and function. * Flattened ventricular septum suggestive of RV pressure increase. Right Ventricle * Moderately dilated right ventricle. * Mccullough's sign present (basal and mid RV hypokinesis with apical hypercontractility), which is a finding that is associated with pulmonary embolism. Right Atrium * Moderately dilated right atrium. Tricuspid Valve * Normal tricuspid valve structure. * Mild tricuspid regurgitation. * Moderate-severe pulmonary hypertension. * Estimated RVSP is 52-57 mmHg. * Estimated RA pressure is presumed to be at least 5-10 mmHg. This is likely underestimated. IVC not visualized. IVC * The IVC is not well evaluated. Pericardium * There is a trivial pericardial effusion present. Chest CTA 11/16/17 14:48 IMPRESSION: Re- demonstrated bilateral main pulmonary artery and proximal division pulmonary arterial emboli. Focal consolidation in the right lower lobe appears similar. Peripheral nodularity in the right upper, middle and lower lobes also appear similar. No communication was made on these findings as the referring physician is already aware of the bilateral pulmonary emboli according to the ordering notes. D/ / Melquiades Martinez / Melquiades Martinez Interpreting Provider: Melquiades Martinez - VTE Documentation of Mechanical Device: Intermittent pneumatic compression device Consult Discharge Plan - Plan Referrals: Renetta Gibson, PAC [Physician Supervisor Sewer Maintenance] - 11/29/17 1:00 pm
[2017-11-17 12:53] VITALS: BP 146/91
--- NOTE | 2017-11-17 13:12 | Orthopedics Progress Note ---
Date of Encounter: 11/17/17 Time of Encounter: 12:30 - Assessment and Plan (1) Hip fracture, left Current Visit: Yes Status: Acute POD#5 s/p left hip IM nailing 11/12/17 Dressings c/d/i with no drainage. leave intact unless become >50% saturated. opsite to be changed prior to discharge Toe touch weight bearing. continue therapy when medically cleared, temporarily on hold due to bedrest status from cardiac standpoint ice to left hip as needed Patient cleared from orthopedic standpoint for discharge once medically cleared. Patient mentioned she may be transferred to [facility] today for further management of PE Orthopedics signing off at this time but please call for any questions. Will follow up in [facility] office with Renetta Gibson PA-C on 11/29/17 at 1:00pm. Qualifiers: Encounter type: initial encounter Fracture type: closed Qualified Code(s) : S72.002A - Fracture of unspecified part of neck of left femur, initial encounter for closed fracture Subjective Principal diagnosis: POD#5 s/p left hip IM nailing 11/12/17 Interval history: Patient laying in bed, states she does not feel good but not as bad as yesterday. Has been short of breath since yesterdays episode. Minimal pain in hip or lower extremity. Therapy on hold due to bedrest status from cardiac standpoint. Patient states she is apparently being transferred to [facility] today for further management of her PE Objective Vital signs: Vital Signs Temp Pulse Resp BP Pulse Ox 11/17/17 12:52 97.3 F L 108 18 146/91 94 11/17/17 10:13 20 94 11/17/17 09:31 95 11/17/17 07:42 98.1 F 89 16 136/84 95 11/17/17 04:48 97.5 F L 103 22 132/92 92 11/17/17 04:09 16 96 11/17/17 00:10 97.7 F 106 17 124/84 93 11/16/17 21:59 18 94 11/16/17 21:10 97.7 F 106 20 124/84 95 11/16/17 20:10 104 92 11/16/17 16:36 20 90 11/16/17 16:15 98.4 F 104 23 128/72 90 11/16/17 15:12 98 F 101 23 124/80 93 01/18/18 14:16 98.3 F 106 20 111/73 93 Intake and Output 11/16/17 11/17/17 11/17/17 23:59 07:59 15:59 Intake Total 413.7 / 413.7 273 / 273 240 / 240 Balance 413.7 / 413.7 273 / 273 240 / 240 Intake: IV Fluids 173.7 / 173.7 273 / 273 Cardizem 125 MG In 0.9 % Sodium 23.7 / 23.7 Chloride 100 ML @ 5 MG/HR 5 mls/hr IVC .Q24H POOL Rx#: [id number] Heparin 25,000 UNIT/500 ML D5W 273 / 273 25,000 unit In 500 ml @ 14 UNIT /KG/HR 19.838 mls/hr IVC .Q24H POOL Rx#:[id number] Levaquin Premix 750mg/150 mL 150 / 150 750 mg In 150 ml @ 100 mls/hr IVPB Q24H POOL Rx#:[id number] Oral 240 / 240 240 / 240 Other: Meal Dinner Lunch Percent of Meal Consumed 75% 15% # Urine Diapers 1 1 1 Incision: clean and dry (dressings c/d/i, good dorsiflexion of foot, no calf tenderness) - Labs CBC & BMP: 11/17/17 10:04 11/15/17 08:37 Labs: Abnormal lab results RBC 3.63 M/mcL (3.82-4.97) L 11/17/17 10:04 Hgb 10.5 g/dL (11.5-15.4) L 11/17/17 10:04 Hct 33.0 % (35.3-44.9) L 11/17/17 10:04 RDW 14.6 % (11.5-14.5) H 11/17/17 10:04 Nucleated RBCs/100 WBC 1.1 /100 WBC (0) H 11/17/17 10:04 PT 18.3 Seconds (9.4-12.1) H D 11/16/17 17:26 APTT 98.8 Seconds (26.0-36.0) H D 11/17/17 06:59 BUN 7 mg/dL (8-23) L 11/15/17 08:37 Creatinine 0.55 mg/dL (0.60-1.20) L 11/15/17 08:37 Glucose 137 mg/dL (70-105) H 11/15/17 08:37 POC Glucose 163 (58-89) H 11/13/17 16:20 Phosphorus 2.2 mg/dL (2.7-4.5) L 11/12/17 01:07 AST 11 Units/L (13-39) L 11/12/17 01:07 Troponin I 0.09 ng/mL (< 0.04) H* 11/16/17 10:25 B-Natriuretic Peptide 249 pg/mL (Less than 100) H 11/14/17 06:52 Serum Total Protein 5.7 g/dL (6.4-8.9) L 11/12/17 01:07 Albumin 3.4 g/dL (3.5-5.7) L 11/12/17 01:07 Globulin 2.3 g/dL (2.4-3.5) L 11/12/17 01:07 Triglycerides 184 mg/dL (< 150) H 11/12/17 01:07 Cholesterol 236 mg/dL (< 200) H 11/12/17 01:07 LDL Cholesterol, Calc 148 mg/dL (0-99) H 11/12/17 01:07 VLDL Cholesterol, Calc 37 mg/dL (< 31) H 11/12/17 01:07 - VTE Documentation of Mechanical Device: Intermittent pneumatic compression device Consult Discharge Plan - Plan Referrals: Renetta Gibson, PAC [Physician Outsole Rounder] - 11/29/17 1:00 pm
--- NOTE | 2017-11-17 13:55 | Discharge Summary ---
<Oriana Renae - Last Filed: 11/17/17 13:51> Date of Encounter: 11/17/17 Time of Encounter: 13:51 - Discharge Diagnosis (1) Acute pulmonary embolism Priority: Primary Status: Acute Comments: CTA was then ordered on 11/13/2017 which showed acute bilateral pulmonary emboli in the segmental pulmonary arteries with evidence of at least mild right heart strain. Repeat CTA 11/16/2017 showed re-demonstration bilateral pulmonary emboli but with proximal extension into bilateral main pulmonary artery. Repeat echo 11/16/2017 showed LVEF 60%, flattened ventricular septum suggestive of RV pressure increase. Moderately dilated right ventricle. Mccullough's sign present (basal and RV hypokinesis with apical hypercontractility). moderate to severe pulmonary hypertension estimated RVSP is 52-57mmhg which could be underestimated (IVC not well visualized ) Qualifiers: Acute cor pulmonale presence: with acute cor pulmonale Qualified Code(s): I26.01 - Septic pulmonary embolism with acute cor pulmonale (2) Syncope Priority: Secondary Status: Acute Qualifiers: Syncope type: unspecified Qualified Code(s): R55 - Syncope and collapse (3) Hip fracture, left Priority: Secondary Status: Acute Qualifiers: Encounter type: initial encounter Fracture type: closed Qualified Code(s) : S72.002A - Fracture of unspecified part of neck of left femur, initial encounter for closed fracture (4) COPD (chronic obstructive pulmonary disease) Priority: Secondary Status: Chronic Qualifiers: COPD type: unspecified COPD Qualified Code(s): J44.9 - Chronic obstructive pulmonary disease, unspecified (5) Hypoxia Priority: Secondary Status: Acute (6) Hypotension Priority: Secondary Status: Acute Qualifiers: Hypotension type: unspecified hypotension type Qualified Code(s): I95.9 - Hypotension, unspecified (7) Hypertension Priority: Secondary Status: Chronic Qualifiers: Hypertension type: essential hypertension Qualified Code(s): I10 - Essential (primary) hypertension (8) DVT prophylaxis Priority: Secondary Status: Acute - Discharge Medications Home Medications: Acetaminophen [Tylenol] 650 mg PO HS 11/11/17 [History] Albuterol Sulfate [Ventolin Hfa] 2 puff IH Q4H PRN 11/11/17 [History] Cholecalciferol (Vitamin D3) [Vitamin D3] 1,000 unit PO DAILY 11/11/17 [History] Lisinopril-HCTZ 10-12.5 [Prinzide 10-12.5] 1 each PO DAILY 11/11/17 [History] Ranitidine HCl [Zantac] 150 mg PO BID 11/11/17 [History] predniSONE [PredniSONE] 20 mg PO DAILY 11/11/17 [History] Acetaminophen [Tylenol] 650 mg PO Q4H PRN tablet 11/17/17 [Rx] Albuterol Sulfate [Albuterol Inhaler] 2 puff IH [id number] PRN inhaler 11/17/17 [ Rx] Budesonide/Formoterol 160/4.5 [Symbicort 160/4.5] 2 puff IH BIDR inhaler [Rx] Docusate [Colace] 100 mg PO BID capsule 11/17/17 [Rx] Famotidine [Pepcid] 20 mg PO BID tablet 11/17/17 [Rx] Heparin 2,500 unit IVP Q6H PRN vial 11/17/17 [Rx] Heparin 5,000 unit IVP Q6HR PRN vial 11/17/17 [Rx] Ipratropium/Albuterol Neb [Duoneb] 3 ml IH [id number] inhsol 11/17/17 [Rx] Lisinopril-HCTZ 10-12.5 [Prinzide 10-12.5] 1 each PO DAILY tablet 11/17/17 [Rx] Morphine [Morphine Sulfate] 4 mg IVP Q4H PRN syringe 11/17/17 [Rx] Naloxone [Narcan] 0.4 mg IVP Q2MIN PRN inj 11/17/17 [Rx] Nystatin Cream [Mycostatin Cream] 1 appl TP TID tube 11/17/17 [Rx] Ondansetron [Zofran] 4 mg IVP Q6HR PRN vial 11/17/17 [Rx] OxyCODONE Immed Rel [Roxicodone 5 MG] 5 mg PO Q4H PRN tablet 11/17/17 [Rx] Promethazine [Phenergan] 12.5 mg IV Q6HR PRN vial 11/17/17 [Rx] Temazepam [Restoril] 15 mg PO HS PRN capsule 11/17/17 [Rx] predniSONE [PredniSONE] 20 mg PO DAILY tablet 11/17/17 [Rx] rOPINIRole [Requip] 0.5 mg PO DAILY@2100 tablet 11/17/17 [Rx] Allergies/Adverse Reactions: 3 Allergy/AdvReac Type Severity Reaction Status Date / Time Penicillins [PCN] Allergy Anaphylaxis Verified 11/11/17 12:04 shellfish derived Allergy Anaphylaxis Verified 11/11/17 12:04 Procedures/tests Complete & Pending: Procedures Performed prior 72 hours Category Date Time Status CTA chest [CT angio chest] [CT] Stat Cat Scan 11/16/17 14:48 Completed ECG 12 lead ECG [ECG] Routine Y 11/16/17 09:59 Completed EKG [ECG 12 lead ECG] [ECG] Stat Y 11/14/17 16:42 Completed EV limited echocardiogram Stat Y 11/16/17 12:29 Completed EV venous imaging LE BI Stat Y 11/16/17 10:08 Completed Date of admission: 11/12/17 15:07 Primary care physician: Ree Fan MD Consults: 11/12/17 11:24 Consult to Occupational Therapy [CONS] Routine Comment: Evaluate, develop and implement POC Reason for Consult: ADLs Consult to Orthopedic Navigator [CONS] [CONS] Routine Consult to Physical Therapy [CONS] Routine Comment: Evaluate, develop and implement POC Reason for Consult: hip fx, TTWB Consult to Sales Training Coordinator [CONS] Routine Reason for SW Consult: Rehab RT Post Op Consult [CONS] Routine 11/13/17 14:31 Consult to Critical Care [CONS] Stat Consulting Provider: Pulm Crit Care & Sleep [place] Reason for Consult: PE with hypotension, s/p femoral fracture, Post-op day 1 Call Completed: Yes 11/13/17 16:13 Consult to Critical Care [CONS] Routine Consulting Provider: Pulm Crit Care [facility] Sleep [place] Reason for Consult: PE Call Completed: Yes Discharging clinician: Theodore Page Anticipated date of discharge: 11/17/17 - Patient Status Disposition: Transfer Critical Access Hosp Condition: Critical Functional capacity at discharge: uses cane/walker Overall status at discharge: patient is not back to baseline - Discharge Instructions Follow Up With: Renetta Gibson PAC [Physician Electrical Engineer Mep] - 11/29/17 1:00 pm - Diet and Activity Activity: as per physical therapy, other (Bed rest) Diet: regular diet Hospital course: Ms. Max is a 77yo female with a past medical history of COPD, GERD, HTN who presented to [facility] on 11/11/2017 after a fall at home. Her son reported that she had been at home for a while and in bed after her fracture due to transportation taking a while to come get her and take her to the hospital. She was originally sent to [facility] where CT scan of the hip showed a left femur fracture. She then underwent surgery for left hip IM nailing on 11/12/2017. Immediate post-op 11/12/17, patient developed hypoxia with O2 sats in the 80s, and hypotension with MAP ranging from 50s-60s, systolic blood pressure 80-90. She was resuscitated with IVF, transfused with blood with an assumption of acute blood loss anemia. Her Oxygen saturation improved with supplemental O2. However, she continued to have hypotension, after 2 units RBCs, requiring dopamine infusion by night team. CXR 11/12/2017 showed nonspecific opacity in lateral lower left chest which could be consolidation or scar or focal nodule. The patient was then started on Levaquin. The next day on 11/13/2017 the patient was complaining of shortness of breath and required oxygen by nasal cannula. She did not have any leg pain and lungs were clear to auscultation. Echo demonstrated LVEF 65%, mild left ventricular diastolic dysfunction, mild-moderate tricuspid regurgitation, mild- moderate pulmonary hypertension. CTA was then ordered on 11/13/2017 which showed acute bilateral pulmonary emboli in the segmental pulmonary arteries with evidence of at least mild right heart strain. She was then transferred to the ICU into the care of the critical care team and started on lovenox. On 11/15 Lovenox was stopped and eliquis started. On 11/16/2017 the patient experienced a syncopal event while moving from the bedside commode to the bed. Her 2 nurses were assisting her when she passed out in the bed. Upon the arrival to examine the patient she was awake, alert, and oriented. She only complained of shortness of breath and denied chest pain. She can not remember the syncopal event. An EKG was obtained and showed a fib. She was then placed on BiPAP and Cardizem started. Cardizem was stopped after she was normal sinus rhythm and heart rate stable. Repeat CXR 11/16/2017 minimal residuals subsegmental atelectasis central upper right lung. Repeat CTA showed re- demonstration bilateral pulmonary emboli but with proximal extension into bilateral main pulmonary artery. Heparin was then started. Bilateral lower extremity ultrasound showed normal deep and superficial venous exam. Repeat echo 11/16/2017 showed LVEF 60%, flattened ventricular septum suggestive of RV pressure increase. Moderately dilated right ventricle. Mccullough's sign present (basal and RV hypokinesis with apical hypercontractility). moderate to severe pulmonary hypertension estimated RVSP is 52-57mmhg which could be underestimated (IVC not well visualized ) On 11/17/2017 patient was complaining of worsened shortness of breath requiring 8 L of oxygen for oxygen and she now has diffuse wheezing throughout both lungs bilaterally, compared to yesterday when she was cleared auscultation throughout both lungs. Repeat chest x-ray showed left basilar atelectasis. After a thorough discussion with the patient and her family it was decided that the patient should be transferred to [facility] for further care and treatment for her pulmonary embolism. While there she may be able to get directed TPA or mechanical extraction of the PE. [facility] had been called and Dr. Steele of cardiology accepted the transfer of the patient. - Time Spent with Patient Total time spent providing and/or coordinating discharge services: Greater than 30 minutes - Constitutional Vitals: Temp Pulse Resp BP Pulse Ox 97.3 F L 108 18 146/91 94 11/17/17 12:52 11/17/17 12:52 11/17/17 12:52 11/17/17 12:52 11/17/17 12:52 General appearance: Present: A&O X 3, pleasant, no acute distress Exam: Gen.: Vitals noted. No acute distress. AAOx3 HEENT: PERRL/EOMI, oropharynx clear, Normocephalic, atraumatic Neck: Supple. No adenopathy. Cardiac: RRR, no murmur, +S1/S2 Pulmonary: diffuse wheezes, rales or rhonchi, equal chest expansion, accessory muscle use Abdomen: soft, nontender, Bowel sounds noted, no guarding MSK: no joint swelling noted Extremities:+ non-pitting BLE edema, nontender calf, no cyanosis or clubbing Neuro: A&Ox3, moves all extremities, no focal deficits Psych: Appropriate mood and behavior - VTE Documentation of Mechanical Device: Intermittent pneumatic compression device <Theodore Page - Last Filed: 11/17/17 18:16> Date of Encounter: 11/17/17 Procedures/tests Complete & Pending: Procedures Performed prior 72 hours Category Date Time Status CTA chest [CT angio chest] [CT] Stat Cat Scan 11/16/17 14:48 Completed ECG 12 lead ECG [ECG] Routine Y 11/16/17 09:59 Completed EV limited echocardiogram Stat Y 11/16/17 12:29 Completed EV venous imaging LE BI Stat Y 11/16/17 10:08 Completed Date of admission: 11/12/17 15:07 Primary care physician: Ree Fan MD Consults: 11/12/17 11:24 Consult to Occupational Therapy [CONS] Routine Comment: Evaluate, develop and implement POC Reason for Consult: ADLs Consult to Orthopedic Navigator [CONS] [CONS] Routine Consult to Physical Therapy [CONS] Routine Comment: Evaluate, develop and implement POC Reason for Consult: hip fx, TTWB Consult to Sales Training Coordinator [CONS] Routine Reason for SW Consult: Rehab RT Post Op Consult [CONS] Routine 11/13/17 14:31 Consult to Critical Care [CONS] Stat Consulting Provider: Pulm Crit Care [facility] Sleep [place] Reason for Consult: PE with hypotension, s/p femoral fracture, Post-op day 1 Call Completed: Yes 11/13/17 16:13 Consult to Critical Care [CONS] Routine Consulting Provider: Pulm Crit Care & Sleep [place] Reason for Consult: PE Call Completed: Yes Hospital course: Ms. Max is a 77 year old female - Time Spent with Patient Total time spent providing and/or coordinating discharge services: - Constitutional Vitals: Temp Pulse Resp BP Pulse Ox 97.3 F L 108 17 146/91 94 11/17/17 12:52 11/17/17 12:52 11/17/17 16:05 11/17/17 12:52 11/17/17 16:05 - Attending Attestation I conducted a face to face diagnostic evaluation of this patient and my medical decision-making was reviewed with the Resident Physician. I agree with the documented findings, disposition and treatment plan as described except to the extent set forth below: Patient is currently hemodynamically stable. After the syncopal event yesterday the patient was profoundly hypotensive with blood pressure of 80 systolic. This resolved after administration of IV fluids. On exam she is in no acute distress awake alert oriented, speaking in full sentences. Heart is regular with no murmurs. Lungs are clear. Lower extremity Dopplers were done and are preliminary negative for SVT and DVT. Plan: We will transfer to [facility] for consideration of catheter directed thrombolysis for submassive PE with extension to the main pulmonary artery while adequately anticoagulated. I have spent 40 minutes coordinating of this discharge. Theodore Page MD
--- NOTE | 2017-11-18 07:45 | Electrocardiograph Report ---
[address] [address] Test Date: 2017-11-16 Pat Name: Dayan Max Department: 114 Room: [facility] Gender: F Manager Services: : 1940 Requested By: Theodore Page Order Number: [id number] Reading MD: Sam Mcgregor MD Measurements Intervals [place] Rate: 160 P: VT: 0 QRS: 42 QRSD: 90 T: 35 QT: 267 QTc: 356 Interpretive Statements MULTIFOCAL ATRIAL TACHYCARDIA POOR R WAVE PROGRESSION Electronically Signed On 11-18-2017 7:43:59 EST by Sam Mcgregor MD
== END 2017-11-17 16:50 | disposition critical access hospital (66) | DRG 480 ==
LOC: 3NENU → SUATTDRO 11:44 → 2NNU 11-12 13:59 → SUATTDRO 11-12 15:07 → ICNU 11-13 16:08 → 3NENU 11-16 02:55
PROVIDERS: ADMIT Internal Medicine; ATTEND Internal Medicine